=== PATIENT | male | born 1970 | race Caucasian/White ===

== ENCOUNTER → 2017-12-14 10:13 | Outpatient (CLI) | payer OTHER, SELFPAY ==
--- NOTE | 2017-12-14 10:26 | MRI_ITS ---
STUDY: MRA OF THE HEAD WITHOUT CONTRAST REASON FOR EXAM: Male, 47 years old. Family history of aneurysms. Patient has no symptoms. TECHNIQUE: 3-D rlcw-gh-titrnr (TOF) imaging was performed with MIPs. The study was performed unenhanced. COMPARISON: None. FINDINGS: Normal bilateral petrous carotid arteries. Normal right cavernous carotid artery with a normal supraclinoid bifurcation. Normal left cavernous carotid artery with a normal supraclinoid bifurcation. Normal right A1 segments of the anterior cerebral artery. Normal left A1 segments of the anterior cerebral artery. Normal intact anterior communicating artery (ACOM). Normal bilateral A2 segments of the anterior cerebral arteries. Normal right M1 and M2 segments of the middle cerebral arteries, with a normal M1 bifurcation. There is a questionable saccular aneurysm arising from the distal LEFT M1 segment near the trifurcation. Estimated size of the aneurysm is approximately 4.4 mm in size. There is non-visualization of the right posterior communicating artery (PCOM). There is non-visualization of the left posterior communicating artery (PCOM). Normal bilateral vertebral arteries. Normal basilar artery with a normal basilar bifurcation. The visualized bilateral superior cerebellar (SCA) arteries are normal. Normal bilateral P1, P2 and visualized P3 segments of the posterior cerebral arteries. There is no major vessel occlusion or hemodynamically significant stenosis. There is no demonstrated abnormality of the visualized brain. MRI/MRA Head ONLY without Contrast IMPRESSION: Apparent saccular aneurysm arising from the distal LEFT M1 segment near the trifurcation. Electronically Signed: Magalys Vazquez MD at 14:38 EST , Service support ,
== END ==
PROVIDERS: Family Provider Family Medicine; PCP Family Medicine; Visit Provider Family Medicine
DX: Z82.49 Family history of ischemic heart disease and other diseases of the circulatory system (principal)
CPT/HCPCS: 70544

== ENCOUNTER → 2018-09-13 09:20 | Outpatient (CLI) | payer OTHER, SELFPAY ==
[2018-09-13 10:41] LABS: Cholesterol 208 mg/dL (200); Glucose 87 mg/dL (74-106); High Density Lipoprotein 48 mg/dL; Triglycerides 119 mg/dL; Very Low Density Lipoprotein 24 mg/dL (5-40)
--- OUTSIDE RECORDS SUMMARY | 2018-11-08 10:15 | XMS RPT_ITS ---
:1970 Author Organization OHIP Care Team Providers Name Role Phone Diego Eaton Attending Unavailable Seven Mobley Primary Care Unavailable Diego Eaton Primary Care Unavailable Harish Carrasquillo Attending Unavailable AL-ALI, FIRAS Admitting Unavailable AL-ALI, FIRAS Attending Unavailable AL-ALI, FIRAS Admitting Unavailable AL-ALI, FIRAS Attending Unavailable PROBLEMS PROBLEMS DATE TYPE CONDITION / CODE ATTENDING STATUS SOURCE 09/27/2018 Active Cerebral AL-ALI, FIRAS Active [facility] aneurysm, Other [place] nonruptured / Repository I67.1(ICD-10) 09/27/2018 Admitting Unknown / AL-ALI, FIRAS Active [facility] diagnosis [facility](Unknown) [facility] Repository PROCEDURES PROCEDURES No Procedure Records FoundRESULTS RESULTS BRIEF OP NOT Observed: 09/27/2018 Status: COMPLETED Source: [facility] 11:22 AM CLINIC OTHER CAMPUS REPOSITORY HNO ID: [id number] Author: Mamadou Coronado Service: (none) Author Type: Physician Type: Brief Op Note Filed: 09/27/2018 11:23 AM Note Text: BRIEF OPERATIVE / PROCEDURE NOTE LOG ID: [id number] SURGERY/PROCEDURE DATE: 09/27/2018 INCISION/PROCEDURE START TIME: INCISION CLOSE/PROCEDURE END TIME: SURGEON(S)/PROCEDURALIST(S) AND FELT CARBONIZER(S): Surgeon(s) and Role: * Mamadou Marsh-Ali - Primary No Additional Staff SURGERY/PROCEDURE(S): DCA ANESTHESIA: Procedural Sedation FINDINGS: Lt MCA aneurysm ESTIMATED BLOOD LOSS: 5 mls SPECIMENS: None COMPLICATIONS: None PRE-OP/PRE-PROCEDURE DIAGNOSIS: ANEURYSM POST-OP/POST-PROCEDURE DIAGNOSIS: LT MCA ANEURYSM SIGNATURE: Mamadou Coronado MD PATIENT NAME: Corey Bermudez DATE: September 27, 2018 TIME: 11:22 AM PAGER/CONTACT #: HISTORY PHYSICAL Observed: 09/27/2018 Status: COMPLETED Source: [facility] 11:13 AM CLINIC OTHER CAMPUS REPOSITORY HNO ID: [id number] Author: Mamadou Coronado Service: (none) Author Type: Physician Type: HANDP Filed: 09/27/2018 11:17 AM Note Text: PROCEDURAL SEDATION HISTORY AND PHYSICAL EXAM SERVICE DATE: 09/27/2018 SERVICE TIME: 10:30 am Subjective HPI: This is a 48 year old male who presents with brain aneurysm PAST ANESTHESIA HISTORY: No history of adverse event PAST MEDICAL HISTORY Diagnosis Date - NONE - Thyroid nodule 07/25/2014 PAST SURGICAL HISTORY Procedure Laterality Date - NONE Prior to Admission medications as of 09/27/18 0824 Not on File ALLERGIES No Known Allergies Objective PHYSICAL EXAM: The remainder of the physical exam is noncontributory. AIRWAY: Airway Visualization of Uvula: Yes Mouth opening greater than 2 fingerbreadths: Yes Neck Full Range of Motion: Yes LUNGS: Lungs clear to auscultation, Good diaphragmatic excursion CARDIAC: Normal S1 and S2; no rubs, murmurs, or gallops Assessment/Plan ASA Class: ASA Class:: Normal healthy patient emergency procedure Active Problems: * No active hospital problems. * Resolved Problems: * No resolved hospital problems. * Provisional Diagnosis/Treatment Plan: DCA SEDATION GOAL: Moderate SIGNATURE: Mamadou Coronado MD PATIENT NAME: Corey Bermudez DATE: September 27, 2018 TIME: 11:14 AM PAGER: [phone] HEMOGRAM Collected: 09/27/2018 Status: F Source: [facility] 8:54 AM HEALTH SYSTEM REPOSITORY TYPE CODE TESTS RESULT OUT OF REFERENCE UNITS RANGE LAB WBC(LOINC) 4.23-9.07 thou/cmm WBC 7.08 LAB RBC(LOINC) 4.63-6.08 mil/cmm RBC 5.41 LAB HGB(LOINC) 13.7-17.5 g/dL Hgb 16.2 LAB HCT(LOINC) 40.1-51.0 % Hct 46.8 LAB MCV(LOINC) 83.2-95.6 fl MCV 86.5 LAB MCH(LOINC) 25.7-32.2 pg MCH 29.9 LAB MCHC(LOINC) 32.3-36.5 % MCHC 34.6 LAB RDW(LOINC) 11.6-14.4 % RDW 12.4 LAB RDWSD(LOINC 36.1-45.8 fl ) RDW SD 38.9 LAB PLT(LOINC) 141-365 thou/cmm Platelet 238 LAB MPV(LOINC) 8.7-12.0 fl MPV 10.0 Performed By: #### CBC1 #### [facility] [address] [address] BASIC PANEL Collected: 09/27/2018 Status: F Source: [facility] 8:54 AM HEALTH SYSTEM REPOSITORY TYPE CODE TESTS RESULT OUT OF REFERENCE UNITS RANGE LAB NA(LOINC) 136-145 mEq/L Sodium Blood 138 LAB K(LOINC) 3.5-5.1 mEq/L Potassium Blood 3.8 LAB CL(LOINC) 98-107 mEq/L Chloride Blood 105 LAB CO2(LOINC) 21-32 mEq/L CO2 Blood 28 LAB GLU(LOINC) 70-99 mg/dL Glucose Blood 88 LAB BUN(LOINC) 7-18 mg/dL BUN High Blood 21 LAB CREA(LOINC 0.67-1.17 mg/dL ) Creatinine Blood 0.77 LAB CA(LOINC) 8.5-10.1 mg/dL Calcium Blood 8.6 LAB ANGAP(LOIN 8-16 C) Anion Gap 9 Performed By: #### P8 #### [facility] [address] [address] MDRD GFR Collected: 09/27/2018 Status: F Source: [facility] 8:54 AM HEALTH SYSTEM REPOSITORY TYPE CODE TESTS RESULT OUT OF RANGE REFERENCE UNITS LAB GFRFN(LOINC >60mL/min/1.73m ) 2 eGFR >60 Result Comment: If the patient is , multiply the result by 1.210. Performed By: #### GFR #### [facility] [address], [place] [address] PROTIME Collected: 09/27/2018 Status: F Source: [facility] 8:54 AM HEALTH SYSTEM REPOSITORY TYPE CODE TESTS RESULT OUT OF REFERENCE UNITS RANGE LAB PTI(LOINC) 9.7-13.0 sec Prothrombin Time 10.9 LAB INR(LOINC) 0.90-1.30 INR 1.05 Result Comment: Note: Reference Range Change Vitamin K Antagonist (VKA) Therapeutic Range: INR 2 to 3 (Target INR of 2.5) Note: For patients treated with VKA drugs, such as warfarin, the [place] [employer] 2012 Guideline recommends a therapeutic INR range of 2 to 3 (target INR of 2.5). This recommendation includes high-risk patients with antiphospholipid syndrome with previous arterial or venous thromboembolism, current-generation mechanical or bioprosthetic aortic heart valve replacement. VKA Therapeutic Range for some Mechanical Valve Replacement: INR 2.5 to 3.5 (Target INR of 3) Note: Patients with mechanical aortic valve replacement and additional risk factors for thromboembolic events (atrial fibrillation, previous thromboembolism, LV dysfunction, hypercoagulable conditions) or an older generation mechanical AVR (i.e., ball in-Cage) or any mechanical MVR should have a INR therapeutic range of 2.5 to 3.5 target INR of 3). Kath GH, et al. Chest 2012; 141:7S-47S Gavin RA et al. JAC 2017; 70: 252-289 Performed By: #### PT #### [facility] [address], [place] [address] LIPID PROFILE Collected: 09/13/2018 Status: F Source: [place] 9:22 AM [facility] REPOSITORY TYPE CODE TESTS RESULT OUT OF RANGE REFERENCE UNITS LAB L501.4900 200 mg/dL High CHOL 208 Result Comment: <200 mg/dL Desirable 200-240 mg/dL Borderline >240 mg/dL High Risk LAB L501.5000 mg/dL Normal TRIG 119 Result Comment: The drugs N-Acetylcysteine and Metamizole may falsely depress this assay. Serum Triglycerides Reference Interval Normal <150 mg/dL Borderline high 150 - 199 mg/dL High 200 - 499 mg/dL Very High > or = 500 mg/dL LAB L501.6400 mg/dL Normal HDL 48 Result Comment: The drugs N-Acetylcysteine and Metamizole may falsely depress this assay. Reference Range HDL <40 mg/dL Low HDL Cholesterol HDL >or= 60 mg/dL High HDL Cholesterol LAB L501.6500 0-130 mg/dL High LDL 136 LAB L501.6600 5-40 mg/dL Normal VLDL 24 Performed By: #### L500.4100, L501.0100 #### [facility] [address] [place], [address] GLUCOSE Collected: 09/13/2018 Status: F Source: [place] 9:22 AM [facility] REPOSITORY TYPE CODE TESTS RESULT OUT OF RANGE REFERENCE UNITS LAB L501.0100 74-106 mg/dL Normal GLU 87 Result Comment: Please note revised GLUCOSE reference range effective 2017. Performed By: #### L500.4100, L501.0100 #### [facility] [address] [place], [address] HOSP Observed: 08/27/2018 Status: COMPLETED Source: [facility] 12:00 AM CLINIC OTHER CAMPUS REPOSITORY Patient:Corey Bermudez MRN: <[id number]> Height:6' 1(1.854 m) Weight:No patient weight recorded within the last 30 days. Outpatient Medications as of 09/27/18: Patient has no current outpatient medications. Admission/Clinic Administered Medications as of 09/27/18: NaCl 0.9% iv infusion Problem List: Allergies: No Known Allergies Date Verified:09/27/18 Lab Values Lab Value Units Date High Low POTA* 3.8 mEq/L 09/27/2018 5.1 3.5 MAGALI* 46.8 % 09/27/2018 51.0 40.1 No progress notes entered within the past 30 days MRA HEAD ONLY WITHOUT Observed: 12/14/2017 Status: F Source: [place] CONTRAST 10:27 AM [facility] REPOSITORY [facility] Services [address] [place] [address] MRA Head ONLY without Contrast MR#: [id number] Acct: [id number] Name: COREY BERMUDEZ Rep #: [id number] : 1970 M 47 From: Magalys Vazquez MD PCP: Seven Mobley MD Status: REG CLI Study: MRA Head ONLY without Contrast Date of Exam: 12/14/17 Exam# [id number] Ordering Dr: Diego Eaton MD STUDY: MRA OF THE HEAD WITHOUT CONTRAST REASON FOR EXAM: Male, 47 years old. Family history of aneurysms. Patient has no symptoms. TECHNIQUE: 3-D jqrs-cw-zxcbrg (TOF) imaging was performed with MIPs. The study was performed unenhanced. COMPARISON: None. FINDINGS: Normal bilateral petrous carotid arteries. Normal right cavernous carotid artery with a normal supraclinoid bifurcation. Normal left cavernous carotid artery with a normal supraclinoid bifurcation. Normal right A1 segments of the anterior cerebral artery. Normal left A1 segments of the anterior cerebral artery. Normal intact anterior communicating artery (ACOM). Normal bilateral A2 segments of the anterior cerebral arteries. Normal right M1 and M2 segments of the middle cerebral arteries, with a normal M1 bifurcation. There is a questionable saccular aneurysm arising from the distal LEFT M1 segment near the trifurcation. Estimated size of the aneurysm is approximately 4.4 mm in size. There is non-visualization of the right posterior communicating artery (PCOM). There is non-visualization of the left posterior communicating artery (PCOM). Normal bilateral vertebral arteries. Normal basilar artery with a normal basilar bifurcation. The visualized bilateral superior cerebellar (SCA) arteries are normal. Normal bilateral P1, P2 and visualized P3 segments of the posterior cerebral arteries. There is no major vessel occlusion or hemodynamically significant stenosis. There is no demonstrated abnormality of the visualized brain. MRI/MRA Head ONLY without Contrast IMPRESSION: Apparent saccular aneurysm arising from the distal LEFT M1 segment near the trifurcation. Electronically Signed: Magalys Vazquez MD at 14:38 EST , Service support , CC: Seven Mobley MD; Diego Eaton MD [place] Measurer: Signed ALLERGIES ALLERGIES DATE TYPE / CODE NAME / CODE REACTION SEVERITY SOURCE Drug NO KNOWN [facility] Class/49177 ALLERGIES Other [place] 1003(SNOMED Repository CT) [id number] NO KNOWN [facility] 6([facility]) Repository ENCOUNTERS ENCOUNTERS ADMIT/DISCHARGE ACCOUNT NUMBER ADMITTING ENCOUNTER LOCATION SOURCE CLASS 09/27/2018/09/27/20 [id number] AL-ALI, FIRAS [facility] Other [place] Repository 09/27/2018/09/27/20 [id number] AL-ALI, FIRPATY Inpatient [place] [facility] 18 Encounter GENERAL [facility] [place] [facility] MEDICAL Repository CENTERBuildi ng:NEILRoom: POOLBed: 09/13/2018 [id number] [facility] ding:MFPLAB Repository 12/14/2017 [id number] [facility] ding:MRI Repository PAYERS PAYERS ENCOUNTER GUARANTOR PAYER SUBSCRIBER SOURCE 09/27/2018 COREY Fox Santiago COREY Fox [facility] KLINGMANDOB: Insurance:[facility]: [facility] [id number] [facility] Number: [place] [id number]: [phone]) Date: [phone] (HP) 09/13/2018 Corey Brary [id number] Insurance:CORESOURCEP [facility]: [facility] Number: [id number] [id number] Repository [address]Gfj: [phone]) Date:[phone] (HP) [address] [place], [place] [address]FM: 09/13/2018 Secondary NOT GIVENUNK [place] Insurance:SELF PAY [facility] Number: Effective Repository Date:2018-09-13 12/14/2017 Corey Barry [id number] [facility] Number: [id number], [place] [id number] Repository [address]Qgu: [phone]) Date:5775-54-47[phone] (HP) [address] [place] [address]ND: 12/14/2017 Secondary NOT GIVENUNK [place] Insurance:SELF PAY [facility]: Effective Repository Date:2017-12-07
== END ==
PROVIDERS: Family Provider Family Medicine; PCP Family Medicine; Visit Provider Nurse Practitioner Family
DX: Z00.00 Encounter for general adult medical examination without abnormal findings (principal)
CPT/HCPCS: 36415; 80061; 82947

== ENCOUNTER 2018-12-22 16:35 | Inpatient (IN) | payer OTHER, SELFPAY ==
[2018-12-22 16:56] VITALS: BP 121/80; PULSE 64; RESP 16; TEMP 36.7; O2SAT 98; BMI 26.3
[2018-12-22 17:00] VITALS: O2SAT 97
--- NOTE | 2018-12-22 19:44 | PN_ITS ---
Subjective: Follow-up stroke Is a 48-year-old white male who underwent a left MCA coiling for a aneurysm on December 17. Patient underwent imaging due to a family history of cerebral aneurysms and so eventually went and had the coiling. The quality is comp gated by a superotemporal occlusion. Patient did receive ReoPro. Afterwards, patient did have some right-sided weakness, expressive a aphasia. Symptoms, however have been improving according to his . Vitals/I&O's: Vital Signs Temp Pulse Resp BP Pulse Ox 36.7 C 64 16 121/80 H 98 12/22/18 16:56 12/22/18 16:56 12/22/18 16:56 12/22/18 16:56 12/22/18 16:56 Oxygen Delivery Method Room Air Weight: 92.986 kg Body Mass Index (BMI) 26.3 General: Alert, Cooperative, No apparent distress, - - Expressive aphasia. Follows commands appropriately. HEENT: Atraumatic, PERRLA, EOMI, Normocephalic Oral: Moist Mucosa, No Gingival or Mucosal Lesions/ Ulcerations Neck: No Nodes, Thyroid Normal Size and Texture Lungs: Clear to auscultation, Normal air movement, No rhonchi, No wheeze Cardiovascular: Regular rate, Regular Rhythm, Normal S1, Normal S2, No murmurs Abdomen: Bowel Sounds Present, Soft, Non Tender, Non-Distended, No Hepato- splenomegaly Extremities: No edema, No Calf Tenderness Skin: No rashes, No breakdown Musculoskeletal: No Tenderness to Palpation of Joints or Extremities, No Muscle Wasting Neurological: Cranial nerves II-XII grossly intact, Motor Exam 5/5 strength throughout - Though there was very slight drift with the right lower extremity. Psych/Mental Status: Normal Affect, Appropriate Current Medications Acetaminophen (Tylenol) 650 mg PO Q8H PRN PRN PRN Reason: Mild Pain (0-3/10)/Headache Aspirin (Aspirin, Baby) 81 mg PO DAILYCM GISSELLE Atorvastatin Calcium (Lipitor) 40 mg PO QHS GISSELLE Bisacodyl (Dulcolax) 10 mg RECTAL .PRN X 1 PRN PRN Reason: Constipation Clopidogrel Bisulfate (Plavix) 75 mg PO DAILY GISSEL[place] Enoxaparin Sodium (Lovenox) 30 mg SC DAILY@0600 GIS[place] Magnesium Hydroxide (Milk Of Magnesia) 30 ml PO .PRN X 1 PRN PRN Reason: Constipation Senna/Docusate Sodium (Senokot-S, Susu-Colace) 2 tablet PO BID GISSELLE Medical Necessity - Tobacco Use Smoking Status: Never smoker Assessment/Plan 1. She stroke: Status post MCA coiling. Patient did receive ReoPro. Patient still does have some right-sided weakness and expressive a aphasia but have been slightly improving. Patient on Plavix, aspirin and atorvastatin 40. Patient to follow-up with neurology as outpatient. Physical, occupational and speech therapy. 2. Left MCA aneurysm: Status post coiling. Follow-up with Dr. Coronado as outpatient. 3. DVT prophylaxis with Lovenox. Case discussed with the patient's at bedside. Code Visit Inpatient E&M: 59232 Subs Hosp L2
[2018-12-22 19:51] VITALS: BP 124/75; PULSE 60; RESP 16; TEMP 36.6; O2SAT 97
[2018-12-22] MEDS: Senna/Docusate Sodium 1 Tablet 2 TABLET PO (20:41)
[2018-12-22] MEDS: Atorvastatin Calcium 40 MG Tablet PO (20:42)
[2018-12-23 05:00] VITALS: BMI 26.3
[2018-12-23 07:03] VITALS: BP 119/76; PULSE 60; RESP 16; TEMP 36.9; O2SAT 94
[2018-12-23 07:28] LABS: Absolute Lymphocyte Count 2.33 X10^3/ul (0.83-4.51); Basophil# 0.02 X10^3/uL; Basophil% 0.3 % (0-1); Eosinophil# 0.16 X10^3/uL; Eosinophils% 2.2 % (0-5); Hematocrit 42.2 % (40-54); Hemoglobin 13.7 g/dl (13.0-16.5); Lymphocyte # 2.33 X10^3/ul (4.0); Mean Corp Hgb Conc 32.5 g/gl (32-36); Mean Corpuscular Hgb 28.9 pg (27.0-32.0); Mean Platelet Vol. 10.1 fl (6.2-12.0); Monocyte# 0.75 X10^3/uL; Monocyte% 10.3 % (0-10); Neutrophil # 4.02 X10^3/uL (2.7-7.7); Neutrophil % 55.1 % (47-70); Platelet Count 218 K/mm3 (150-450); RBC Distribution Width CV 12.6 % (11.6-14.6); RBC Distribution Width SD 40.4 fl (35.1-43.9); Red Blood Count 4.74 M/mm3 (4.6-6.2); White Blood Count 7.3 K/mm3 (4.4-11.0)
[2018-12-23 07:36] LABS: POSITIVE COUNT NO; POSITIVE DIFFERENTIAL NO; POSITIVE MORPHOLOGY NO
[2018-12-23 07:46] LABS: ALB/GLOB Ratio 0.9 RATIO (0.9-2.4); AST(SGOT) 34 U/L (15-37); Alanine Aminotransfer ALT/SGPT 62 U/L (16-61); Albumin, Serum 3.3 g/dL (3.2-5.0); Alkaline Phosphatase 74 U/L (45-117); Anion Gap 6 (5-15); BUN 23 mg/dL (7-18); Calcium,Total 8.7 mg/dL (8.5-10.1); Chloride 107 mmol/L (98-107); EST Glomerular Filtration Rate 84 mL/min (>60); Est Glom Filt Rate - Afr Amer 102 mL/min (>60); Estimated Creatinine Clearance 103.89 ml/min; Globulin 3.6 g/dL (2.2-4.2); Glucose 101 mg/dL (74-106); Potassium 4.4 mmol/L (3.5-5.1); Protein, Total 6.9 g/dL (6.4-8.2); Sodium Level 143 mmol/L (136-145)
[2018-12-23] MEDS: Aspirin 81 MG TAB.CHEW PO (07:47)
[2018-12-23] MEDS: Senna/Docusate Sodium 1 Tablet 2 TABLET PO (07:47)
[2018-12-23] MEDS: Clopidogrel Bisulfate 75 MG Tablet PO (07:47)
[2018-12-23] MEDS: Enoxaparin 30 MG/0.3 ML Syringe SC (08:17)
--- NOTE | 2018-12-23 10:48 | HP.PCM_ITS ---
Problem List (1) Debility Status: Acute (2) Aphasia Status: Acute (3) Left acute arterial ischemic stroke, MCA (middle cerebral artery) Status: Acute (4) Aneurysm Status: Resolved History of Present Illness Date of Admission: 12/22/18 Chief Complaint: Debility post stroke The patient is a 48 year old M with PMH Left MCA aneurysm s/p coiling 12/18/[address] Dahl at [facility] complicated by aphasia, found to have left MCA stroke with left superior temporal occlusion in follow up catheter angiogram per documentation, admitted to [facility] on 12/22/18 with debility s/p acute Left MCA stroke, for > 3 hrs therapy daily with a goal of returning home at or near his prior level of functional independence. Per [facility] note documentation patient had NIHSS of 5 on 12/18/2018, MRA angiogram done on 12/14/2018 reported to show distal Left MCA aneurysm fo which he underwent coiling at [facility]. At present patient continues to have expressive aphasia, denies any weakness, headache, dizziness, focal motor weakness or sensory loss. He lives with his , in a 2 jae house and has 4 steps to get into the house, denies any falls, does not use cane or walker to ambulate and does drive. Per patient he did not need any assistance for his ADLs prior to the event. He has been started on ASA/Plavix and Lipitor post stroke. ] Past Medical History Allergies No Known Allergies Allergy (Verified 12/22/18 18:38) Home Medications: Ambulatory Orders Medication Instructions Recorded Aspirin 81 mg PO DAILY 12/22/18 Clopidogrel Bisulfate [Plavix] 75 mg PO DAILY 12/22/18 Enoxaparin Sodium [Lovenox] 30 mg SQ DAILY 12/22/18 Lipitor 40 mg PO DAILY 12/22/18 Lives: Spouse/ Significant Other Smoking Status: Never smoker Alcohol: None Drugs: None Review of Systems Constitutional: Reports: - - complete ROS negative except as documented in HPI VTE Information - Inpt Only VTE Present on Admission: No VTE Mechan Device Prophylaxis: SCD's, Knee High DONNA Hose VTE Pharm Prophylaxis ordered?: Yes Patient Problems: Active and Suspected Problems Debility (Acute) Aphasia (Acute) Left acute arterial ischemic stroke, MCA (middle cerebral artery) (Acute) - Physical Exam General: Alert HEENT: Normocephalic Neck: Supple Lungs: Normal air movement Cardiovascular: Normal S1, Normal S2 Abdomen: Bowel Sounds Present Extremities: No cyanosis Neurological: - - consious, alert, AoAx3, CN 2-12 grossly intact, has mild to moderate expressive aphasia, with some receptive deficits, power 5/5 both UE/LE, no sensory loss, no cerebellar signs, Reflexes + B/L B/S/T/K/A, gait normal. NIHSS 3 at present, mRS 0 at baseline. Psych/Mental Status: Normal Affect Vital Signs Temp Pulse Resp BP Pulse Ox 98.4 F 60 16 119/76 94 12/23/18 07:03 12/23/18 07:03 12/23/18 07:03 12/23/18 07:03 12/23/18 07:03 Oxygen Delivery Method Room Air Weight: 92.986 kg Body Mass Index (BMI) 26.3 Intake and Output for Last 24 Hours 12/21/18 12/22/18 12/24/18 23:59 23:59 00:59 Intake Total 240 / 240 Output Total 200 / 200 250 / 250 Balance -200 / -200 -10 / -10 Laboratory Tests Past 24 Hrs 12/23/18 12/23/18 07:15 07:15 WBC 7.3 RBC 4.74 Hgb 13.7 Hct 42.2 MCV 89.0 MCH 28.9 MCHC 32.5 RDW 12.6 RDW Differential 40.4 Plt Count 218 MPV 10.1 Immature Gran % (Auto) 0.100 Neut % (Auto) 55.1 Lymph % (Auto) 32.0 Fergus % (Auto) 10.3 H Eos % (Auto) 2.2 Baso % (Auto) 0.3 Absolute Neuts (auto) 4.0 Absolute Lymphs (auto) 2.33 Total Counted Not Reportable Sodium 143 Potassium 4.4 Chloride 107 Carbon Dioxide 30.0 Anion Gap 6 BUN 23 H Creatinine 1.00 Estim Creat Clear Calc 103.89 Est GFR (MDRD) Af Amer 102 Est GFR (MDRD) Non-Af 84 BUN/Creatinine Ratio 23.0 H Glucose 101 Calcium 8.7 Total Bilirubin 0.70 AST 34 ALT 62 H Alkaline Phosphatase 74 Total Protein 6.9 Albumin 3.3 Globulin 3.6 Albumin/Globulin Ratio 0.9 Assessment/Plan All Active Problems Debility (Acute) Aphasia (Acute) Left acute arterial ischemic stroke, MCA (middle cerebral artery) (Acute) Aneurysm (Resolved) The patient is a 48 year old M with PMH Left MCA aneurysm s/p coiling 12/18/[address] Dahl at [facility] complicated by aphasia, found to have left MCA stroke with left superior temporal occlusion in follow up catheter angiogram per documentation, admitted to [facility] on 12/22/18 with debility s/p acute Left MCA stroke, for > 3 hrs therapy daily with a goal of returning home at or near his prior level of functional independence. Per [facility] note documentation patient had NIHSS of 5 on 12/18/2018, MRA angiogram done on 12/14/2018 reported to show distal Left MCA aneurysm fo which he underwent coiling at [facility]. At present patient continues to have expressive aphasia, denies any weakness, headache, dizziness, focal motor weakness or sensory loss. He lives with his , in a 2 jae house and has 4 steps to get into the house, denies any falls, does not use cane or walker to ambulate and does drive. Per patient he did not need any assistance for his ADLs prior to the event. He has been started on ASA/Plavix and Lipitor post stroke. Plan -PT for gait stability -OT for ADLs -ST -Bowel protocol -Analgesics as needed -Labs reviewed-ALT elevated slightly, will recheck. -Acute left MCA stroke- on ASA/Plavix and Lipitor -Left MCA aneurysm- s/p coiling by Dr. Dahl at [facility] 12/18/2018 -Goal BP < 130/80 mmHg -GI/DVT prophylaxis- Famotidine/Lovenox -Fall precautions -Further medical management per hospitalist recommendation -Follow up with Neurology, PCP and Dr. Dahl after discharge Code Visit Inpatient E&M: 67081 Init Hosp L3
--- NOTE | 2018-12-23 10:48 | REHABEVAL_ITS ---
Admission Information Status Changes from Prescreening?: No changes Identified Actual Problem List:: Mobility Impaired, Self Care Deficit Potential Problem List:: DVT, Bleeding, Infection, UTI, Aspiration, Falls, Skin Integrity, Depression Risk of Complications DVT: LMWH, DONNA Hose, Sequential Compression Device Bleeding: Monitor Lab Values, Nursing to Teach Precautions for anti-coagulation therapy., Wound, if applicable, to be assessed every shift., Stroke patients assessed for lethargy or change in status. Infection: Clinical Staff to Monitor for S/S of infection:, S/S of infection include fever, redness, warmth, etc. Urinary Tract Infection: Monitor for frequency, burning, discomfort, or incontinence., Nursing will obtain urine sample for urinalysis and C&S when ordered. Aspiration: Clinical staff will monitor for coughing, drooling, congestion., Speech will evaluate swallowing and dsyphasia., Nursing will monitor patient swallowing during meals. Falls: Patient will be evaluated for Fall Precautions, Patient will be placed on Fall Precautions as indicated per protocol. Skin Breakdown: Nursing will assess skin daily using assessment tool., Nursing will place on Skin Breakdown Precautions as indicated. Pain: Clinical staff will assess patient's pain level per protocol., Medications will be given, if needed, and the pain level reassessed., Other methods: Massage, distraction, decrease stimulus, etc. used PRN. Plan of Care Patient requires physician specializing in physical medicine and rehab oversight to provide close medical supervision of rehab issues including: Pain Management, Sleep Problems, Bowel and Bladder, Medical and co-morbidity Management, DVT prophylaxis, Rehabilitation Leadership, Coordination of treatment team Patient needs Physical Therapy: For a minimum of 1 hour, At least 5 out of 7 days Patient needs Physical Therapy to improve:: Mobility, Mobility, Mobility, Strengthening, Transfers, Stretching, ROM, Endurance, Stairs, Gait, Balance Patient needs Occupational Therapy: For a minimum of 1 hour, At least 5 out of 7 days Patient needs Occupational Therapy to improve ADL's incl.: Eating, Grooming, Bathing, Dressing, Toileting, Toilet transfers, Community Reintegration, Higher functioning activities, Household tasks, Adaptive Equipment, Splinting, Other activities as determined Patient requires speech therapy: For a minimum of 1 hour, At least 5 out of 7 days Patient requires speech therapy for: Swallowing, Cognition, Language Skills, Compensatory Strategies Patient requires 24/ Rehabilitation Nursing for: Pain Issues, Identifying and preventing risk factors, Monitoring and reporting current medical conditions, Assisting with ambulation, transfer, and all ADL's, Teaching patients about disease process and medications, Family teaching, Providing safe environment, Bowel and Bladder Issues, Skin integrity, Medication Management Patient needs Life Enrichment Manager/ Case Management for: Discharge Planning, Arranging Home Equipment or Services, Family Interventions Patient needs Dietary and Nutrition Services for: Adequate Nutrition, Nutritional Supplements, Nutritional Education Goals Patient will remain: free from falls, or injury at time of discharge. Patient will perform bed mobility at: MOD I level of assist. Patient will complete transfers from bed to chair at: MOD I level of assist. Patient will ambulate: 100 feet, with MOD I assist, with LRD Patient will complete upper body dressing at: MOD I level of assist. Patient will complete lower body dressing at: MOD I level of assist. Patient will complete toileting at: MOD I level of assist. Patient will perform bathing at: MOD I level of assist. Patient will complete grooming at: MOD I level of assist. Patient will complete home management skills at: MOD I level of assist. Patient will achieve: 12 stairs, at MOD I assist Patient will have pain level of: of 3 or less Patient's skin will: remain intact, free from infection. Patient will receive: adequate nutrition. Discharge Planning Pt Prognosis for Sig. Practical Improv. w/in Reasonable Time: Good Estimated Length of stay (days): 16 Anticipated D/C Destination: Home Was Preadmission Assessment Accurate?: Yes
[2018-12-23 11:30] VITALS: O2SAT 97
[2018-12-23 12:18] VITALS: BMI 26.3
--- NOTE | 2018-12-23 13:37 | NURSING ---
patient ambulated multiple times this shift x min assist >150 ft in hallway
[2018-12-23 19:13] VITALS: BP 146/87; PULSE 69; RESP 16; TEMP 36.9; O2SAT 98
[2018-12-23] MEDS: Atorvastatin Calcium 40 MG Tablet PO (21:47)
[2018-12-24 05:00] VITALS: BMI 26.3
[2018-12-24] MEDS: Enoxaparin 30 MG/0.3 ML Syringe SC (05:29)
[2018-12-24 07:55] VITALS: BP 161/84; PULSE 57; RESP 16; TEMP 36.5; O2SAT 98
[2018-12-24] MEDS: Clopidogrel Bisulfate 75 MG Tablet PO (08:30)
[2018-12-24] MEDS: Aspirin 81 MG TAB.CHEW PO (08:30)
[2018-12-24 11:55] VITALS: BMI 26.3
[2018-12-24 11:56] VITALS: O2SAT 98
[2018-12-24 13:44] LABS: Alanine Aminotransfer ALT/SGPT 58 U/L (16-61)
--- NOTE | 2018-12-24 15:27 | PN_ITS ---
Patient Problems: Active and Suspected Problems Debility (Acute) Aphasia (Acute) Left acute arterial ischemic stroke, MCA (middle cerebral artery) (Acute) Subjective: Patient seen and examined. He has no complaints. Review of systems is otherwise negative. He has been tolerating therapy very well. REview of systems is otherwise negative. Vitals/I&O's: Vital Signs Temp Pulse Resp BP Pulse Ox 97.7 F L 57 L 16 161/84 H 98 12/24/18 07:55 12/24/18 07:55 12/24/18 07:55 12/24/18 07:55 12/24/18 11:56 Oxygen Delivery Method Room Air Weight: 204 lb 12.951 oz Body Mass Index (BMI) 26.3 Intake and Output for Last 24 Hours 12/22/18 12/23/18 12/24/18 22:59 23:59 23:59 Intake Total Output Total Balance General: Alert, Oriented x3, Cooperative, No apparent distress HEENT: Atraumatic, PERRLA, EOMI, Normocephalic Oral: Moist Mucosa Neck: Supple, No JVD, Negative Carotid Bruits Lungs: Clear to auscultation, Normal air movement, No rhonchi, No wheeze, No ral es Cardiovascular: Regular rate, Regular Rhythm, Normal S1, Normal S2, No murmurs Abdomen: Bowel Sounds Present, Soft, Non Tender, Non-Distended, No Hepato- splenomegaly Extremities: No clubbing, No cyanosis, No edema, Capillary Refill Less than 3 Seconds Skin: No rashes, No breakdown Musculoskeletal: No Tenderness to Palpation of Joints or Extremities Lymphatic: No Cervical, Supraclavicular, or Inguinal Adenopathy Neurological: Cranial nerves II-XII grossly intact, - - mild expressive aphasia Psych/Mental Status: Normal Affect, Appropriate, Alert and oriented to time, place, person, mood and affect Laboratory Results 12/24/18 12:50: ALT 58 Current Medications Acetaminophen (Tylenol) 650 mg PO Q8H PRN PRN PRN Reason: Mild Pain (0-3/10)/Headache [facility] Admin: 12/24/18 08:30 Dose: 81 mg Atorvastatin Calcium (Lipitor) 40 mg PO QHS [facility] Last Admin: 12/23/18 21:47 Dose: 40 mg Bisacodyl (Dulcolax) 10 mg RECTAL .PRN X 1 PRN PRN Reason: Constipation Clopidogrel Bisulfate (Plavix) 75 mg PO DAILY [facility] Last Admin: 12/24/18 08:30 Dose: 75 mg Enoxaparin Sodium (Lovenox) 30 mg SC DAILY@0600 [facility] Last Admin: 12/24/18 05:29 Dose: 30 mg Famotidine (Pepcid) 20 mg PO BID [facility] Magnesium Hydroxide (Milk Of Magnesia) 30 ml PO .PRN X 1 PRN PRN Reason: Constipation Senna/Docusate Sodium (Senokot-S, Susu-Colace) 2 tablet PO BID PRN PRN Reason: Constipation Medical Necessity - Tobacco Use Smoking Status: Never smoker Assessment/Plan All Active Problems Debility (Acute) Aphasia (Acute) Left acute arterial ischemic stroke, MCA (middle cerebral artery) (Acute) Aneurysm (Resolved) 1. CVA s/p MCA coiling. * developed a stroke after he had MCA aneurysm coiling. * Patient has improved and he does mild right-sided weakness. On aspirin and Plavix as well as * Intensity atorvastatin. PT OT on board. Speech therapy also on board. * Neurology on board. * 2. Left MCA aneurysm: s/p coiling. TO follow up with neurosurgery on outpatient basis DVT prophylaxis: lovenox Code Visit Inpatient E&M: 35260 Subs Hosp L2
[2018-12-24 19:32] VITALS: BP 130/76; PULSE 71; RESP 16; TEMP 36.7; O2SAT 95
[2018-12-24] MEDS: Atorvastatin Calcium 40 MG Tablet PO (19:59)
[2018-12-24] MEDS: Famotidine 20 MG Tablet PO (19:59)
[2018-12-24 21:31] VITALS: BMI 26.3
[2018-12-25] MEDS: Enoxaparin 30 MG/0.3 ML Syringe SC (07:08)
[2018-12-25 07:35] VITALS: BP 125/76; PULSE 62; RESP 16; TEMP 36.9; O2SAT 96
[2018-12-25] MEDS: Aspirin 81 MG TAB.CHEW PO (08:02)
[2018-12-25] MEDS: Famotidine 20 MG Tablet PO ×2 (08:02→21:57)
[2018-12-25] MEDS: Clopidogrel Bisulfate 75 MG Tablet PO (08:02)
--- NOTE | 2018-12-25 15:13 | PN.NEURO_ITS ---
Patient Problems: Active and Suspected Problems Debility (Acute) Aphasia (Acute) Left acute arterial ischemic stroke, MCA (middle cerebral artery) (Acute) Subjective: No issues overnight. Care discussed with nursing staff. - Physical Exam General: Alert HEENT: Normocephalic Neck: Supple Lungs: Normal air movement Cardiovascular: Normal S1, Normal S2 Abdomen: Bowel Sounds Present Extremities: No cyanosis Neurological: - - consious, alert, AoAx3, CN 2-12 grossly intact, has mild to moderate expressive aphasia, with some receptive deficits, power 5/5 both UE/LE, no sensory loss, no cerebellar signs, Reflexes + B/L B/S/T/K/A, gait normal. NIHSS 2 at present, mRS 0 at baseline. Psych/Mental Status: Normal Affect Vital Signs Temp Pulse Resp BP Pulse Ox 98.5 F 62 16 125/76 H 96 12/25/18 07:35 12/25/18 07:35 12/25/18 07:35 12/25/18 07:35 12/25/18 07:35 Oxygen Delivery Method Room Air Weight: 92.9 kg Body Mass Index (BMI) 26.3 Intake and Output for Last 24 Hours 12/23/18 12/24/18 12/25/18 23:59 23:59 23:59 Intake Total 680 / 680 Output Total Balance 680 / 680 Medical Necessity - Tobacco Use Smoking Status: Never smoker Assessment/Plan All Active Problems Debility (Acute) Aphasia (Acute) Left acute arterial ischemic stroke, MCA (middle cerebral artery) (Acute) Aneurysm (Resolved) The patient is a 48 year old M with [facility] Left MCA aneurysm s/p coiling 12/18/[address] Dahl at [facility] complicated by aphasia, found to have left MCA stroke with left superior temporal occlusion in follow up catheter angiogram per documentation, admitted to [facility] on 12/22/18 with debility s/p acute Left MCA stroke, for > 3 hrs therapy daily with a goal of returning home at or near his prior level of functional independence. Per [facility] note documentation patient had NIHSS of 5 on 12/18/2018, MRA angiogram done on 12/14/2018 reported to show distal Left MCA aneurysm fo which he underwent coiling at [facility]. At present patient continues to have expressive aphasia, denies any weakness, headache, dizziness, focal motor weakness or sensory loss. He lives with his , in a 2 jae house and has 4 steps to get into the house, denies any falls, does not use cane or walker to ambulate and does drive. Per patient he did not need any assistance for his ADLs prior to the event. He has been started on ASA/Plavix and Lipitor post stroke. Plan -PT for gait stability -OT for ADLs -ST -Bowel protocol -Analgesics as needed -Labs reviewed-Repeat ALT normalized. -Acute left MCA stroke- on ASA/Plavix and Lipitor -Left MCA aneurysm- s/p coiling by Dr. Dahl at [facility] 12/18/2018 -Goal BP < 130/80 mmHg -GI/DVT prophylaxis- Famotidine/Lovenox -Fall precautions -Further medical management per hospitalist recommendation -Follow up with Neurology, PCP and Dr. Dahl after discharge
[2018-12-25 17:00] VITALS: BMI 26.3
[2018-12-25 19:22] VITALS: BP 123/75; PULSE 66; RESP 16; TEMP 36.9; O2SAT 96
[2018-12-25] MEDS: Atorvastatin Calcium 40 MG Tablet PO (21:57)
[2018-12-25 22:00] VITALS: PULSE 66; RESP 16; O2SAT 96; BMI 26.3
[2018-12-26] MEDS: Enoxaparin 30 MG/0.3 ML Syringe SC (05:37)
[2018-12-26 07:11] VITALS: BP 110/71; PULSE 57; RESP 16; TEMP 36.9; O2SAT 100
[2018-12-26] MEDS: Aspirin 81 MG TAB.CHEW PO (07:57)
[2018-12-26] MEDS: Clopidogrel Bisulfate 75 MG Tablet PO (07:57)
[2018-12-26] MEDS: Famotidine 20 MG Tablet PO ×2 (07:57→20:15)
[2018-12-26 10:58] VITALS: BMI 26.3
--- NOTE | 2018-12-26 17:45 | PN_ITS ---
Patient Problems: Active and Suspected Problems Debility (Acute) Aphasia (Acute) Left acute arterial ischemic stroke, MCA (middle cerebral artery) (Acute) Subjective: Patient seen and examined. He had no complaints. Review of systems otherwise negative. Family was visiting by his bedside. Speech had improved significantly. Vitals/I&O's: Vital Signs Temp Pulse Resp BP Pulse Ox 98.4 F 57 L 16 110/71 100 12/26/18 07:11 12/26/18 07:11 12/26/18 07:11 12/26/18 07:11 12/26/18 07:11 Oxygen Delivery Method Room Air Weight: 201 lb 4.513 oz Body Mass Index (BMI) 26.3 Intake and Output for Last 24 Hours 12/24/18 12/25/18 12/26/18 23:59 23:59 23:59 Intake Total 680 / 680 Balance 680 / 680 General: Alert, Oriented x3, Cooperative, No apparent distress HEENT: Atraumatic, PERRLA, EOMI, Normocephalic Oral: Moist Mucosa Neck: Supple, No JVD, Negative Carotid Bruits Lungs: Clear to auscultation, Normal air movement, No rhonchi, No wheeze, No rales Cardiovascular: Regular rate, Regular Rhythm, Normal S1, Normal S2, No murmurs Abdomen: Bowel Sounds Present, Soft, Non Tender, Non-Distended, No Hepato-splenomegaly Extremities: No clubbing, No cyanosis, No edema, Capillary Refill Less than 3 Seconds Skin: No rashes, No breakdown Musculoskeletal: No Tenderness to Palpation of Joints or Extremities Lymphatic: No Cervical, Supraclavicular, or Inguinal Adenopathy Neurological: Cranial nerves II-XII grossly intact, - - minimal expressive aphasia Psych/Mental Status: Normal Affect, Appropriate, Alert and oriented to time, place, person, mood and affect Current Medications Acetaminophen (Tylenol) 650 mg PO Q8H PRN PRN PRN Reason: Mild Pain (0-3/10)/Headache Aspirin (Aspirin, Baby) 81 mg PO DAILYCM [facility] Last Admin: 12/26/18 07:57 Dose: 81 mg Atorvastatin Calcium (Lipitor) 40 mg PO QHS [facility] Last Admin: 12/25/18 21:57 Dose: 40 mg Bisacodyl (Dulcolax) 10 mg RECTAL .PRN X 1 PRN PRN Reason: Constipation Clopidogrel Bisulfate (Plavix) 75 mg PO DAILY [facility] Last Admin: 12/26/18 07:57 Dose: 75 mg Enoxaparin Sodium (Lovenox) 30 mg SC DAILY@0600 [facility] Last Admin: 12/26/18 05:37 Dose: 30 mg Famotidine (Pepcid) 20 mg PO BID [facility] Last Admin: 12/26/18 07:57 Dose: 20 mg Influenza Virus Vaccine Quadrival (Fluarix/Fluzone) 0.5 ml IM .ONCE ONE Stop: 12/27/18 10:01 Magnesium Hydroxide (Milk Of Magnesia) 30 ml PO .PRN X 1 PRN PRN Reason: Constipation Senna/Docusate Sodium (Senokot-S, Susu-Colace) 2 tablet PO BID PRN PRN Reason: Constipation Medical Necessity - Tobacco Use Smoking Status: Never smoker Assessment/Plan All Active Problems Debility (Acute) Aphasia (Acute) Left acute arterial ischemic stroke, MCA (middle cerebral artery) (Acute) Aneurysm (Resolved) 1. CVA s/p MCA coiling. * developed a stroke after he had MCA aneurysm coiling. * Patient has improved significantly and he has very minimal right-sided weakness. On aspirin and Plavix as well as * Intensity atorvastatin. PT OT on board. Speech therapy also on board. * Neurology on board. * 2. Left MCA aneurysm: s/p coiling. TO follow up with neurosurgery on outpatient basis DVT prophylaxis: lovenox Code Visit Inpatient E&M: 49385 Subs Hosp L2
[2018-12-26 19:08] VITALS: BP 117/74; PULSE 59; RESP 14; TEMP 36.7; O2SAT 97
--- NOTE | 2018-12-26 19:30 | NURSING ---
SAYS SHE CHECKED WITH PCP'S OFFICE AND PT HAD NOT RECEIVED THIS SEASON.PT DECLINES RECEIVING FLU SHOT.
[2018-12-26] MEDS: Atorvastatin Calcium 40 MG Tablet PO (20:15)
[2018-12-27 05:00] VITALS: BMI 26.3
[2018-12-27] MEDS: Enoxaparin 30 MG/0.3 ML Syringe SC (06:12)
[2018-12-27] MEDS: Clopidogrel Bisulfate 75 MG Tablet PO (07:54)
[2018-12-27] MEDS: Aspirin 81 MG TAB.CHEW PO (07:54)
[2018-12-27] MEDS: Famotidine 20 MG Tablet PO ×2 (07:55→20:39)
[2018-12-27 08:09] VITALS: BP 123/79; PULSE 61; RESP 16; TEMP 36.5; O2SAT 97
--- NOTE | 2018-12-27 10:59 | PCM.PN.NEU ---
Patient Problems: Active and Suspected Problems Debility (Acute) Aphasia (Acute) Left acute arterial ischemic stroke, MCA (middle cerebral artery) (Acute) Subjective: No issues overnight. Care discussed with the nursing staff. Staffed in the team meeting today. All questions were answered. Further therapy details per PT/OT/ST notes. - Physical Exam General: Alert HEENT: Normocephalic Neck: Supple Lungs: Normal air movement Cardiovascular: Normal S1, Normal S2 Abdomen: Bowel Sounds Present Extremities: No cyanosis Neurological: - - consious, alert, AoAx3, CN 2-12 grossly intact, has mild to moderate expressive aphasia, with some receptive deficits, power 5/5 both UE/LE, no sensory loss, no cerebellar signs, Reflexes + B/L B/S/T/K/A, gait normal. NIHSS 2 at present, mRS 0 at baseline. Psych/Mental Status: Normal Affect Vital Signs Temp Pulse Resp BP Pulse Ox 97.7 F L 61 16 123/79 H 97 12/27/18 08:09 12/27/18 08:09 12/27/18 08:09 12/27/18 08:09 12/27/18 08:09 Oxygen Delivery Method Room Air Weight: 91.3 kg Body Mass Index (BMI) 26.3 Intake and Output for Last 24 Hours 12/25/18 12/26/18 12/27/18 23:59 23:59 23:59 Intake Total 680 / 680 440 / 440 Balance 680 / 680 440 / 440 Medical Necessity - Tobacco Use Smoking Status: Never smoker Assessment/Plan All Active Problems Debility (Acute) Aphasia (Acute) Left acute arterial ischemic stroke, MCA (middle cerebral artery) (Acute) Aneurysm (Resolved) The patient is a 48 year old M with [facility] Left MCA aneurysm s/p coiling 12/18/[address] Dahl at [facility] complicated by aphasia, found to have left MCA stroke with left superior temporal occlusion in follow up catheter angiogram per documentation, admitted to [facility] on 12/22/18 with debility s/p acute Left MCA stroke, for > 3 hrs therapy daily with a goal of returning home at or near his prior level of functional independence. Per [facility] note documentation patient had NIHSS of 5 on 12/18/2018, MRA angiogram done on 12/14/2018 reported to show distal Left MCA aneurysm fo which he underwent coiling at [facility]. At present patient continues to have expressive aphasia, denies any weakness, headache, dizziness, focal motor weakness or sensory loss. He lives with his , in a 2 jae house and has 4 steps to get into the house, denies any falls, does not use cane or walker to ambulate and does drive. Per patient he did not need any assistance for his ADLs prior to the event. He has been started on ASA/Plavix and Lipitor post stroke. Also has short-term memory issues post stroke. Plan -PT for gait stability -OT for ADLs -ST -Bowel protocol -Analgesics as needed -Labs reviewed-Repeat ALT normalized. -Acute left MCA stroke- on ASA/Plavix and Lipitor -Left MCA aneurysm- s/p coiling by Dr. Dahl at [facility] 12/18/2018 -Goal BP < 130/80 mmHg -GI/DVT prophylaxis- Famotidine/Lovenox -Fall precautions -Further medical management per hospitalist recommendation -Follow up with Neurology, PCP and Dr. Dahl after discharge
--- NOTE | 2018-12-27 12:13 | CASEMGMT ---
Team meeting held. Patient present as well as patient spouse. No discharge date set. Patient to continue with further care and treatment with plan to re-team patient next week. Patient with insurance update due on 12/28/18 and aware that continued stay approval is not guaranteed. Speech therapy is recommending for patient to have outpatient speech therapy services at time of discharge. Patient and patient spouse are agreeable to recommendation for speech therapy and requesting for services to be set up through [facility]. Support given. Will continue to follow. Pamela LANDERS, DAVID
[2018-12-27 16:53] VITALS: BMI 26.3
[2018-12-27] MEDS: Atorvastatin Calcium 40 MG Tablet PO (20:39)
[2018-12-27 21:06] VITALS: BP 126/72; PULSE 61; RESP 16; TEMP 36.7; O2SAT 97
[2018-12-28] MEDS: Enoxaparin 30 MG/0.3 ML Syringe SC (05:14)
[2018-12-28 08:14] VITALS: BP 112/75; PULSE 57; RESP 12; TEMP 36.6; O2SAT 96
[2018-12-28] MEDS: Aspirin 81 MG TAB.CHEW PO (08:24)
[2018-12-28] MEDS: Famotidine 20 MG Tablet PO ×2 (08:24→20:19)
[2018-12-28] MEDS: Clopidogrel Bisulfate 75 MG Tablet PO (08:24)
--- NOTE | 2018-12-28 10:09 | CASEMGMT ---
Social Work Telephone call from Leila Sumner, intensive clinical case manager for patient. P: [phone]. Leila available for assistance with resources if needed. Pamela LANDERS, DAVID
--- NOTE | 2018-12-28 10:55 | CASEMGMT ---
Insurance Clinical information sent. Pending continued stay approval at this time. Auth#[id number] Pamela LANDERS, DAVID
--- NOTE | 2018-12-28 11:27 | PN.NEURO_ITS ---
Patient Problems: Active and Suspected Problems Debility (Acute) Aphasia (Acute) Left acute arterial ischemic stroke, MCA (middle cerebral artery) (Acute) Subjective: No issues overnight. Care discussed with the nursing staff. - Physical Exam General: Alert HEENT: Normocephalic Neck: Supple Lungs: Normal air movement Cardiovascular: Normal S1, Normal S2 Abdomen: Bowel Sounds Present Extremities: No cyanosis Neurological: - - consious, alert, AoAx3, CN 2-12 grossly intact, has mild to moderate expressive aphasia, with some receptive deficits, power 5/5 both UE/LE, no sensory loss, no cerebellar signs, Reflexes + B/L B/S/T/K/A, gait normal. NIHSS 2 at present, mRS 0 at baseline. Psych/Mental Status: Normal Affect Vital Signs Temp Pulse Resp BP Pulse Ox 97.9 F 57 L 12 112/75 96 12/28/18 08:14 12/28/18 08:14 12/28/18 08:14 12/28/18 08:14 12/28/18 08:14 Oxygen Delivery Method Room Air Weight: 91.3 kg Body Mass Index (BMI) 26.3 Intake and Output for Last 24 Hours 12/26/18 12/27/18 12/28/18 23:59 23:59 23:59 Intake Total 560 / 560 480 / 480 Balance 560 / 560 480 / 480 Medical Necessity - Tobacco Use Smoking Status: Never smoker Assessment/Plan All Active Problems Debility (Acute) Aphasia (Acute) Left acute arterial ischemic stroke, MCA (middle cerebral artery) (Acute) Aneurysm (Resolved) The patient is a 48 year old M with H Left MCA aneurysm s/p coiling 12/18/[address] Dahl at [facility] complicated by aphasia, found to have left MCA stroke with left superior temporal occlusion in follow up catheter angiogram per documentation, admitted to [facility] on 12/22/18 with debility s/p acute Left MCA stroke, for > 3 hrs therapy daily with a goal of returning home at or near his prior level of functional independence. Per [facility] note documentation patient had NIHSS of 5 on 12/18/2018, MRA angiogram done on 12/14/2018 reported to show distal Left MCA aneurysm fo which he underwent coiling at [facility]. At present patient c ontinues to have expressive aphasia, denies any weakness, headache, dizziness, focal motor weakness or sensory loss. He lives with his , in a 2 jae house and has 4 steps to get into the house, denies any falls, does not use cane or walker to ambulate and does drive. Per patient he did not need any assistance for his ADLs prior to the event. He has been started on ASA/Plavix and Lipitor post stroke. Also has short-term memory issues post stroke. Plan -PT for gait stability -OT for ADLs -ST -Bowel protocol -Analgesics as needed -Labs reviewed-Repeat ALT normalized. -Acute left MCA stroke- on ASA/Plavix and Lipitor -Left MCA aneurysm- s/p coiling by Dr. Dahl at [facility] 12/18/2018 -Goal BP < 130/80 mmHg -GI/DVT prophylaxis- Famotidine/Lovenox -Fall precautions -Further medical management per hospitalist recommendation -Follow up with Neurology, PCP and Dr. Dahl after discharge
--- NOTE | 2018-12-28 14:48 | CASEMGMT ---
Insurance Continued stay approved with next update due on 01/04/19 Auth#[id number] Pamela LANDERS, DAVID
[2018-12-28 16:15] VITALS: BMI 26.3
[2018-12-28 20:12] VITALS: BP 113/73; PULSE 63; RESP 16; TEMP 36.9; O2SAT 93
[2018-12-28] MEDS: Atorvastatin Calcium 40 MG Tablet PO (20:19)
[2018-12-29 00:34] VITALS: BMI 26.3
[2018-12-29] MEDS: Enoxaparin 30 MG/0.3 ML Syringe SC (05:53)
[2018-12-29 07:56] VITALS: BP 122/75; PULSE 63; RESP 18; TEMP 36.1; O2SAT 96
[2018-12-29] MEDS: Clopidogrel Bisulfate 75 MG Tablet PO (08:16)
[2018-12-29] MEDS: Famotidine 20 MG Tablet PO ×2 (08:16→20:23)
[2018-12-29] MEDS: Aspirin 81 MG TAB.CHEW PO (08:16)
[2018-12-29 16:28] VITALS: BMI 26.3
--- NOTE | 2018-12-29 17:11 | PN_ITS ---
Patient Problems: Active and Suspected Problems Debility (Acute) Aphasia (Acute) Left acute arterial ischemic stroke, MCA (middle cerebral artery) (Acute) Subjective: Patient seen and examined. He had no complaints. Family is by his bedside. Therapy is going well. Review of systems otherwise negative. Vitals reviewed. Vitals/I&O's: Vital Signs Temp Pulse Resp BP Pulse Ox 97.0 F L 63 18 122/75 H 96 12/29/18 07:56 12/29/18 07:56 12/29/18 07:56 12/29/18 07:56 12/29/18 07:56 Oxygen Delivery Method Room Air Weight: 201 lb 4.513 oz Body Mass Index (BMI) 26.3 Intake and Output for Last 24 Hours 12/27/18 12/28/18 12/29/18 23:59 23:59 23:59 Intake Total 560 / 560 960 / 960 Balance 560 / 560 960 / 960 General: Alert, Oriented x3, Cooperative, No apparent distress HEENT: Atraumatic, PERRLA, EOMI, Normocephalic Oral: Moist Mucosa Neck: Supple, No JVD, Negative Carotid Bruits Lungs: Clear to auscultation, Normal air movement, No rhonchi, No wheeze, No rales Cardiovascular: Regular rate, Regular Rhythm, Normal S1, Normal S2, No murmurs Abdomen: Bowel Sounds Present, Soft, Non Tender, Non-Distended, No Hepato- splenomegaly Extremities: No clubbing, No cyanosis, No edema, Capillary Refill Less than 3 Seconds Skin: No rashes, No breakdown Musculoskeletal: No Tenderness to Palpation of Joints or Extremities Lymphatic: No Cervical, Supraclavicular, or Inguinal Adenopathy Neurological: Cranial nerves II-XII grossly intact, - - mild expressive aphasia Psych/Mental Status: Normal Affect, Appropriate, Alert and oriented to time, place, person, mood and affect Current Medications Acetaminophen (Tylenol) 650 mg PO Q8H PRN PRN PRN Reason: Mild Pain (0-3/10)/Headache Aspirin (Aspirin, Baby) 81 mg PO DAILYCM [facility] Last Admin: 12/29/18 08:16 Dose: 81 mg Atorvastatin Calcium (Lipitor) 40 mg PO QHS [facility] Last Admin: 12/28/18 20:19 Dose: 40 mg Bisacodyl (Dulcolax) 10 mg RECTAL .PRN X 1 PRN PRN Reason: Constipation Clopidogrel Bisulfate (Plavix) 75 mg PO DAILY [facility] Last Admin: 12/29/18 08:16 Dose: 75 mg Enoxaparin Sodium (Lovenox) 30 mg SC DAILY@0600 [facility] Last Admin: 12/29/18 05:53 Dose: 30 mg Famotidine (Pepcid) 20 mg PO BID [facility] Last Admin: 12/29/18 08:16 Dose: 20 mg Magnesium Hydroxide (Milk Of Magnesia) 30 ml PO .PRN X 1 PRN PRN Reason: Constipation Senna/Docusate Sodium (Senokot-S, Susu-Colace) 2 tablet PO BID PRN PRN Reason: Constipation Medical Necessity - Tobacco Use Smoking Status: Never smoker Assessment/Plan All Active Problems Debility (Acute) Aphasia (Acute) Left acute arterial ischemic stroke, MCA (middle cerebral artery) (Acute) Aneurysm (Resolved) 1. CVA s/p MCA coiling. * developed a stroke after he had MCA aneurysm coiling. * Patient has improved significantly and he has very minimal right-sided weakness. On aspirin and Plavix as well as * Intensity atorvastatin. PT OT on board. Speech therapy also on board. * Neurology on board. * 2. Left MCA aneurysm: s/p coiling. TO follow up with neurosurgery on outpatient basis DVT prophylaxis: indu Code Visit Inpatient E&M: 32261 Subs Hosp L2
[2018-12-29 20:19] VITALS: BP 121/74; PULSE 63; RESP 16; TEMP 36.6; O2SAT 98
[2018-12-29] MEDS: Atorvastatin Calcium 40 MG Tablet PO (20:23)
[2018-12-29 22:22] VITALS: BMI 26.3
[2018-12-30] MEDS: Enoxaparin 30 MG/0.3 ML Syringe SC (06:15)
[2018-12-30 07:37] VITALS: BP 106/76; PULSE 63; RESP 18; TEMP 36.4; O2SAT 97
[2018-12-30] MEDS: Famotidine 20 MG Tablet PO ×2 (08:14→20:17)
[2018-12-30] MEDS: Aspirin 81 MG TAB.CHEW PO (08:14)
[2018-12-30] MEDS: Clopidogrel Bisulfate 75 MG Tablet PO (08:14)
[2018-12-30 13:38] VITALS: BMI 26.3
[2018-12-30 20:00] VITALS: BP 124/70; PULSE 66; RESP 16; TEMP 36.9; O2SAT 97
[2018-12-30 20:04] VITALS: BMI 26.3
[2018-12-30] MEDS: Atorvastatin Calcium 40 MG Tablet PO (20:17)
[2018-12-31] MEDS: Enoxaparin 30 MG/0.3 ML Syringe SC (05:46)
[2018-12-31 08:36] VITALS: BP 124/68; PULSE 61; RESP 16; TEMP 36.6; O2SAT 97
[2018-12-31] MEDS: Famotidine 20 MG Tablet PO ×2 (08:39→21:29)
[2018-12-31] MEDS: Clopidogrel Bisulfate 75 MG Tablet PO (08:39)
[2018-12-31] MEDS: Aspirin 81 MG TAB.CHEW PO (08:39)
--- NOTE | 2018-12-31 15:17 | PN.NEURO_ITS ---
Patient Problems: Active and Suspected Problems Debility (Acute) Aphasia (Acute) Left acute arterial ischemic stroke, MCA (middle cerebral artery) (Acute) Subjective: New complaints. Tolerating therapies. No GI or complaints. - Physical Exam Neurological: Cranial nerves II-XII grossly intact, - - Severe expressive a aphasia, comprehension appears largely intact Psych/Mental Status: Normal Affect Vital Signs Temp Pulse Resp BP Pulse Ox 36.6 C 61 16 124/68 H 97 12/31/18 08:36 12/31/18 08:36 12/31/18 08:36 12/31/18 08:36 12/31/18 08:36 Oxygen Delivery Method Room Air Weight: 91.3 kg Body Mass Index (BMI) 26.3 Intake and Output for Last 24 Hours 12/29/18 12/30/18 12/31/18 23:59 23:59 23:59 Intake Total 880 / 880 Balance 880 / 880 Medical Necessity - Tobacco Use Smoking Status: Never smoker Assessment/Plan All Active Problems Debility (Acute) Aphasia (Acute) Left acute arterial ischemic stroke, MCA (middle cerebral artery) (Acute) Aneurysm (Resolved) The patient is a 48 year old M with [facility] Left MCA aneurysm s/p coiling 12/18/[address] Dahl at [facility] complicated by aphasia, found to have left MCA stroke with left superior temporal occlusion in follow up catheter angiogram per documentation, admitted to [facility] on 12/22/18 with debility s/p acute Left MCA stroke, for > 3 hrs therapy daily with a goal of returning home at or near his prior level of functional independence. Plan -PT for gait stability -OT for ADLs -ST -Bowel protocol -Analgesics as needed -Labs reviewed-Repeat ALT normalized. -Acute left MCA stroke- on ASA/Plavix and Lipitor -Left MCA aneurysm- s/p coiling by Dr. Dahl at [facility] 12/18/2018 -Goal BP < 130/80 mmHg -GI/DVT prophylaxis- Famotidine/Lovenox -Fall precautions -Further medical management per hospitalist recommendation -Follow up with Neurology, PCP and Dr. Dahl after discharge
--- NOTE | 2018-12-31 16:36 | PN_ITS ---
Patient Problems: Active and Suspected Problems Debility (Acute) Aphasia (Acute) Left acute arterial ischemic stroke, MCA (middle cerebral artery) (Acute) Subjective: Patient seen and examined. He had no complaints. Review of systems otherwise negative. Labs and vitals reviewed. Vitals/I&O's: Vital Signs Temp Pulse Resp BP Pulse Ox 97.8 F 61 16 124/68 H 97 12/31/18 08:36 12/31/18 08:36 12/31/18 08:36 12/31/18 08:36 12/31/18 08:36 Oxygen Delivery Method Room Air Weight: 201 lb 4.513 oz Body Mass Index (BMI) 26.3 Intake and Output for Last 24 Hours 12/29/18 12/30/18 12/31/18 23:59 23:59 23:59 Intake Total 880 / 880 Balance 880 / 880 General: Alert, Oriented x3, Cooperative, No apparent distress HEENT: Atraumatic, PERRLA, EOMI, Normocephalic Oral: Moist Mucosa Neck: Supple, No JVD, Negative Carotid Bruits Lungs: Clear to auscultation, Normal air movement, No rhonchi, No wheeze, No rales Cardiovascular: Regular rate, Regular Rhythm, Normal S1, Normal S2, No murmurs Abdomen: Bowel Sounds Present, Soft, Non Tender, Non-Distended, No Hepato- splenomegaly Extremities: No clubbing, No cyanosis, No edema, Capillary Refill Less than 3 Seconds Skin: No rashes, No breakdown Musculoskeletal: No Tenderness to Palpation of Joints or Extremities Lymphatic: No Cervical, Supraclavicular, or Inguinal Adenopathy Neurological: Cranial nerves II-XII grossly intact, - - mild expressive aphasia Psych/Mental Status: Normal Affect, Appropriate, Alert and oriented to time, place, person, mood and affect Current Medications Acetaminophen (Tylenol) 650 mg PO Q8H PRN PRN PRN Reason: Mild Pain (0-3/10)/Headache Aspirin (Aspirin, Baby) 81 mg PO DAILYCM [facility] Last Admin: 12/31/18 08:39 Dose: 81 mg Atorvastatin Calcium (Lipitor) 40 mg PO QHS [facility] Last Admin: 12/30/18 20:17 Dose: 40 mg Bisacodyl (Dulcolax) 10 mg RECTAL .PRN X 1 PRN PRN Reason: Constipation Clopidogrel Bisulfate (Plavix) 75 mg PO DAILY [facility] Last Admin: 12/31/18 08:39 Dose: 75 mg Enoxaparin Sodium (Lovenox) 30 mg SC DAILY@0600 [facility] Last Admin: 12/31/18 05:46 Dose: 30 mg Famotidine (Pepcid) 20 mg PO BID [facility] Last Admin: 12/31/18 08:39 Dose: 20 mg Magnesium Hydroxide (Milk Of Magnesia) 30 ml PO .PRN X 1 PRN PRN Reason: Constipation Senna/Docusate Sodium (Senokot-S, Susu-Colace) 2 tablet PO BID PRN PRN Reason: Constipation Medical Necessity - Tobacco Use Smoking Status: Never smoker Assessment/Plan All Active Problems Debility (Acute) Aphasia (Acute) Left acute arterial ischemic stroke, MCA (middle cerebral artery) (Acute) Aneurysm (Resolved) 1. CVA s/p MCA coiling. * developed a stroke after he had MCA aneurysm coiling. * Patient has improved significantly and he has very minimal right-sided weakness. On aspirin and Plavix and high intensity atorvastatin * PT OT on board. Speech therapy also on board. * Neurology on board. * 2. Left MCA aneurysm: s/p coiling. TO follow up with neurosurgery on outpatient basis DVT prophylaxis: jordynox Code Visit Inpatient E&M: 74020 [facility] Hosp L2
--- NOTE | 2018-12-31 16:57 | CASEMGMT ---
Social Work Met with patient spouse, Trinidad. Trinidad expressing concerns with patient returning to home and adjusting to life changes. Trinidad expressing that family and patient were currently in family counseling prior to patient hospitalization. This social welfare clerk encouraging Trinidad to continue with family counseling with patient after discharge. Trinidad reporting to feel safe at home with patient but concerned at what patient may try to do and the chances of patient making unsafe choices. Trinidad asking about chances of continued stay past this weekend for patient. This social welfare clerk reporting to have to have this discussion further with team on , Trinidad planning to bring this up. Trinidad aware that patient is doing well in both P.T/O.T and that main deficits are in areas related to S.L.P. Trinidad plans for patient to return home where Trinidad and patient family will attempt to provide a safe environment for patient but aware that patient might make unsafe choices. This social welfare clerk also providing Trinidad with information about [employer]. Trinidad thanking this social welfare clerk. Support provided. Will continue to follow as needed. Pamela Felix MSW, DAVID
[2018-12-31 17:00] VITALS: BMI 26.3
[2018-12-31 19:19] VITALS: BP 119/71; PULSE 60; RESP 16; TEMP 36.5; O2SAT 97
[2018-12-31] MEDS: Atorvastatin Calcium 40 MG Tablet PO (21:29)
[2018-12-31 21:30] VITALS: PULSE 60; RESP 16; O2SAT 97; BMI 26.3
--- NOTE | 2019-01-01 02:50 | NURSING ---
Reviewed and agree with [employer] documentation and FIMs charting.
[2019-01-01] MEDS: Enoxaparin 30 MG/0.3 ML Syringe SC (05:39)
[2019-01-01 07:45] VITALS: BP 123/81; PULSE 59; RESP 18; TEMP 36.6; O2SAT 97
[2019-01-01] MEDS: Clopidogrel Bisulfate 75 MG Tablet PO (08:39)
[2019-01-01] MEDS: Aspirin 81 MG TAB.CHEW PO (08:39)
[2019-01-01] MEDS: Famotidine 20 MG Tablet PO ×2 (08:39→20:52)
[2019-01-01 15:25] VITALS: BMI 26.3
[2019-01-01 18:57] VITALS: BP 125/85; PULSE 66; RESP 16; TEMP 36.8; O2SAT 97
[2019-01-01 20:52] VITALS: BMI 26.3
[2019-01-01] MEDS: Atorvastatin Calcium 40 MG Tablet PO (20:52)
[2019-01-01 20:53] VITALS: PULSE 66
[2019-01-02] MEDS: Enoxaparin 30 MG/0.3 ML Syringe SC (05:40)
[2019-01-02] MEDS: Famotidine 20 MG Tablet PO ×2 (07:31→19:11)
[2019-01-02] MEDS: Clopidogrel Bisulfate 75 MG Tablet PO (07:31)
[2019-01-02] MEDS: Aspirin 81 MG TAB.CHEW PO (07:31)
[2019-01-02 07:32] VITALS: BP 117/78; PULSE 60; RESP 18; TEMP 36.4; O2SAT 97
[2019-01-02 10:05] VITALS: BMI 26.3
[2019-01-02 19:05] VITALS: BP 142/84; PULSE 74; RESP 16; TEMP 36.6; O2SAT 97
[2019-01-02] MEDS: Atorvastatin Calcium 40 MG Tablet PO (19:11)
[2019-01-02 20:28] VITALS: BMI 26.3
[2019-01-02 22:00] VITALS: PULSE 74
[2019-01-03] MEDS: Enoxaparin 30 MG/0.3 ML Syringe SC (05:44)
[2019-01-03 07:08] VITALS: BP 123/74; PULSE 67; RESP 16; TEMP 36.6; O2SAT 95
[2019-01-03] MEDS: Famotidine 20 MG Tablet PO ×2 (07:39→23:25)
[2019-01-03] MEDS: Aspirin 81 MG TAB.CHEW PO (07:39)
[2019-01-03] MEDS: Clopidogrel Bisulfate 75 MG Tablet PO (07:39)
[2019-01-03] MEDS: Escitalopram Oxalate 10 MG Tablet PO (10:52)
--- NOTE | 2019-01-03 12:37 | PCM.PN.NEU ---
Patient Problems: Active and Suspected Problems Debility (Acute) Aphasia (Acute) Left acute arterial ischemic stroke, MCA (middle cerebral artery) (Acute) Subjective: Vianca team meeting today. His and brother are both present. Physical therapy and occupational therapy notes that he is doing very well, able to ascend 80 steps, good balance, he was outside with physical therapy yesterday and able to negotiate uneven surfaces including the lawn. Continues to have naming issues but speech therapy is noting improved progression. No issues from a nursing standpoint. Possible discharge tomorrow or Monday although family definitely requests that he have ongoing speech therapy regardless. - Physical Exam General: Alert, Oriented x3, Cooperative, No apparent distress Neurological: Cranial nerves II-XII grossly intact Psych/Mental Status: Normal Affect, Alert and oriented to time, place, person, mood and affect Vital Signs Temp Pulse Resp BP Pulse Ox 36.6 C 67 16 123/74 H 95 01/03/19 07:08 01/03/19 07:08 01/03/19 07:08 01/03/19 07:08 01/03/19 07:08 Oxygen Delivery Method Room Air Weight: 94.2 kg Body Mass Index (BMI) 26.3 Intake and Output for Last 24 Hours 01/01/19 01/02/19 01/03/19 23:59 23:59 23:59 Intake Total 440 / 440 480 / 480 Balance 440 / 440 480 / 480 Medical Necessity - Tobacco Use Smoking Status: Never smoker Assessment/Plan All Active Problems Debility (Acute) Aphasia (Acute) Left acute arterial ischemic stroke, MCA (middle cerebral artery) (Acute) Aneurysm (Resolved) The patient is a 48 year old M with [facility] Left MCA aneurysm s/p coiling 12/18/[address] Dahl at [facility] complicated by aphasia, found to have left MCA stroke with left superior temporal occlusion in follow up catheter angiogram per documentation, admitted to [facility] on 12/22/18 with debility s/p acute Left MCA stroke, for > 3 hrs therapy daily with a goal of returning home at or near his prior level of functional independence. Plan -PT for gait stability -OT for ADLs -ST -Bowel protocol -Analgesics as needed -Labs reviewed-Repeat ALT normalized. -Acute left MCA stroke- on ASA/Plavix and Lipitor -Left MCA aneurysm- s/p coiling by Dr. Dahl at [facility] 12/18/2018 -Goal BP < 130/80 mmHg -GI/DVT prophylaxis- Famotidine/Lovenox -Fall precautions -Further medical management per hospitalist recommendation -Follow up with Neurology, PCP and Dr. Dahl after discharge
--- NOTE | 2019-01-03 12:59 | DCINST_ITS ---
- Discharge Diagnoses Current Active Problems: Current Active and Chronic Problems Debility (Acute) Aphasia (Acute) Left acute arterial ischemic stroke, MCA (middle cerebral artery) (Acute) Reason(s) for Visit for Discharge Instructions: Debility status post left MCA distribution infarct You will use the following diet at home:: No restrictions, Regular Your food should be the consistency of: Regular Your liquids should be the consistency of: Regular/Thin Discharge Activity: Return to Normal Activity, May Not Drive Weight Bearing Status: Full weight bearing Lifting Restrictions: 10 pounds Allergies/Adverse Reactions: Allergies No Known Allergies Allergy (Verified 12/22/18 18:38) Medications to take at Discharge Aspirin 81 mg PO DAILY 12/22/18 Atorvastatin Calcium [Lipitor] 40 mg PO QHS #30 tab 01/03/19 Bisacodyl [Dulcolax] 10 mg RECTAL .PRN X 1 PRN suppos. 01/03/19 Clopidogrel Bisulfate [Plavix] 75 mg PO DAILY #90 tab 01/03/19 Escitalopram Oxalate [Lexapro] 10 mg PO DAILY #30 tab 01/03/19 Famotidine [Pepcid] 20 mg PO BID #60 tab 01/03/19 The following prescriptions were given: Atorvastatin Calcium [Lipitor] 40 mg PO QHS #30 tab Clopidogrel Bisulfate [Plavix] 75 mg PO DAILY #90 tab Escitalopram Oxalate [Lexapro] 10 mg PO DAILY #30 tab Famotidine [Pepcid] 20 mg PO BID #60 tab Primary Care Physician: Diego Eaton MD [Primary Care Provider] - Test Results: Test results from this visit will be discussed in further detail at your follow- up appointment, if applicable. Please Follow Up With: Joana neurology When: Call for an appointment Proposed Discharge Date: 01/04/19
--- NOTE | 2019-01-03 13:00 | PCM.RU.DC ---
Rehab Discharge Summary DATE OF ADMISSION: 12/22/18 DATE OF DISCHARGE: 01/04/19 - Rehab Diagnosis Debility status post left MCA distribution infarct Patient Problems: Active and Suspected Problems Debility (Acute) Aphasia (Acute) Left acute arterial ischemic stroke, MCA (middle cerebral artery) (Acute) - Physical Exam General: Alert, Oriented x3, Cooperative, No apparent distress HEENT: Atraumatic, PERRLA, EOMI, Normocephalic Neck: Supple Lungs: Clear to auscultation Cardiovascular: Regular rate Abdomen: Bowel Sounds Present Extremities: No edema, No Calf Tenderness Musculoskeletal: No Tenderness to Palpation of Joints or Extremities Neurological: Cranial nerves II-XII grossly intact, - - Severe expressive a aphasia, comprehensive is largely intact Psych/Mental Status: Normal Affect, Alert and oriented to time, place, person, mood and affect Vital Signs Temp Pulse Resp BP Pulse Ox 36.6 C 67 16 123/74 H 95 01/03/19 07:08 01/03/19 07:08 01/03/19 07:08 01/03/19 07:08 01/03/19 07:08 Oxygen Delivery Method Room Air Weight: 94.2 kg Body Mass Index (BMI) 26.3 Intake and Output for Last 24 Hours 01/01/19 01/02/19 01/03/19 23:59 23:59 23:59 Intake Total 440 / 440 480 / 480 Balance 440 / 440 480 / 480 Discharge Diet: No Restrictions Discharge Activity: Return to Normal Activity, May Not Drive Weight Bearing Status: Full weight bearing Lifting Restrict to (lbs):: 10 Home Medications: Medications to take at Discharge Aspirin 81 mg PO DAILY 12/22/18 Atorvastatin Calcium [Lipitor] 40 mg PO QHS #30 tab 01/03/19 Bisacodyl [Dulcolax] 10 mg RECTAL .PRN X 1 PRN suppos. 01/03/19 Clopidogrel Bisulfate [Plavix] 75 mg PO DAILY #90 tab 01/03/19 Escitalopram Oxalate [Lexapro] 10 mg PO DAILY #30 tab 01/03/19 Famotidine [Pepcid] 20 mg PO BID #60 tab 01/03/19 Following Prescrptions Were Given to Patient: Atorvastatin Calcium [Lipitor] 40 mg PO QHS #30 tab Clopidogrel Bisulfate [Plavix] 75 mg PO DAILY #90 tab Escitalopram Oxalate [Lexapro] 10 mg PO DAILY #30 tab Famotidine [Pepcid] 20 mg PO BID #60 tab Primary Care Physician: Diego Eaton MD [Primary Care Provider] - Please Follow Up With: Joana neurology When: Call for an appointment Disposition: Home Minutes spent on discharge:: 40 Patient Condition:: Good Rehab Course The patient is a 48 year old M with H Left MCA aneurysm s/p coiling 12/18/[address] Dahl at [facility] complicated by aphasia, found to have left MCA stroke with left superior temporal occlusion in follow up catheter angiogram per documentation, admitted to [facility] on 12/22/18 with debility s/p acute Left MCA stroke, for > 3 hrs therapy daily with a goal of returning home at or near his prior level of functional independence. Per [facility] note documentation patient had NIHSS of 5 on 12/18/2018, MRA angiogram done on 12/14/2018 reported to show distal Left MCA aneurysm for which he underwent coiling at [facility]. At present patient continues to have expressive aphasia, denies any weakness, headache, dizziness, focal motor weakness or sensory loss. He lives with his , in a 2 jae house and has 4 steps to get into the house, denies any falls, does not use cane or walker to ambulate and does drive. Per patient he did not need any assistance for his ADLs prior to the event. He has been started on ASA/Plavix and Lipitor post stroke. His stay in the rehab unit was uneventful. He continued to improve and received maximal benefit from therapy. He was discharged home in good condition with instructions to continue mainly speech therapy. [place] and is very active he was instructed to avoid operating heavy machinery until cleared by his physician. Meaningful Use Info Meaningful Use Diagnoses (Choose all that apply): None applicable
--- NOTE | 2019-01-03 13:03 | DS.PCM_ITS ---
Rehab Discharge Summary DATE OF ADMISSION: 12/22/18 DATE OF DISCHARGE: 01/04/19 - Rehab Diagnosis Debility status post left MCA distribution infarct Patient Problems: Active and Suspected Problems Debility (Acute) Aphasia (Acute) Left acute arterial ischemic stroke, MCA (middle cerebral artery) (Acute) - Physical Exam General: Alert, Oriented x3, Cooperative, No apparent distress HEENT: Atraumatic, PERRLA, EOMI, Normocephalic Neck: Supple Lungs: Clear to auscultation Cardiovascular: Regular rate Abdomen: Bowel Sounds Present Extremities: No edema, No Calf Tenderness Musculoskeletal: No Tenderness to Palpation of Joints or Extremities Neurological: Cranial nerves II-XII grossly intact, - - Severe expressive a aphasia, comprehensive is largely intact Psych/Mental Status: Normal Affect, Alert and oriented to time, place, person, mood and affect Vital Signs Temp Pulse Resp BP Pulse Ox 36.6 C 67 16 123/74 H 95 01/03/19 07:08 01/03/19 07:08 01/03/19 07:08 01/03/19 07:08 01/03/19 07:08 Oxygen Delivery Method Room Air Weight: 94.2 kg Body Mass Index (BMI) 26.3 Intake and Output for Last 24 Hours 01/01/19 01/02/19 01/03/19 23:59 23:59 23:59 Intake Total 440 / 440 480 / 480 Balance 440 / 440 480 / 480 Discharge Diet: No Restrictions Discharge Activity: Return to Normal Activity, May Not Drive Weight Bearing Status: Full weight bearing Lifting Restrict to (lbs):: 10 Home Medications: Medications to take at Discharge Aspirin 81 mg PO DAILY 12/22/18 Atorvastatin Calcium [Lipitor] 40 mg PO QHS #30 tab 01/03/19 Bisacodyl [Dulcolax] 10 mg RECTAL .PRN X 1 PRN suppos. 01/03/19 Clopidogrel Bisulfate [Plavix] 75 mg PO DAILY #90 tab 01/03/19 Escitalopram Oxalate [Lexapro] 10 mg PO DAILY #30 tab 01/03/19 Famotidine [Pepcid] 20 mg PO BID #60 tab 01/03/19 Following Prescrptions Were Given to Patient: Atorvastatin Calcium [Lipitor] 40 mg PO QHS #30 tab Clopidogrel Bisulfate [Plavix] 75 mg PO DAILY #90 tab Escitalopram Oxalate [Lexapro] 10 mg PO DAILY #30 tab Famotidine [Pepcid] 20 mg PO BID #60 tab Primary Care Physician: Diego Eaton MD [Primary Care Provider] - Please Follow Up With: Joana neurology When: Call for an appointment Disposition: Home Minutes spent on discharge:: 40 Patient Condition:: Good Rehab Course The patient is a 48 year old M with H Left MCA aneurysm s/p coiling 12/18/[address] Dahl at [facility] complicated by aphasia, found to have left MCA stroke with left superior temporal occlusion in follow up catheter angiogram per documentation, admitted to [facility] on 12/22/18 with debility s/p acute Left MCA stroke, for > 3 hrs therapy daily with a goal of returning home at or near his prior level of functional independence. Per [facility] note documentation patient had NIHSS of 5 on 12/18/2018, MRA angiogram done on 12/14/2018 reported to show distal Left MCA aneurysm for which he underwent coiling at [facility]. At present patient continues to have expressive aphasia, denies any weakness, headache, dizziness, focal motor weakness or sensory loss. He lives with his , in a 2 jae house and has 4 steps to get into the house, denies any falls, does not use cane or walker to ambulate and does drive. Per patient he did not need any assistance for his ADLs prior to the event. He has been started on ASA/Plavix and Lipitor post stroke. His stay in the rehab unit was uneventful. He continued to improve and received maximal benefit from therapy. He was discharged home in good condition with instructions to continue mainly speech therapy. [place] with [place] and is very active he was instructed to avoid operating heavy machinery until cleared by his physician. Meaningful Use Info Meaningful Use Diagnoses (Choose all that apply): None applicable
[2019-01-03 13:49] VITALS: BMI 26.3
--- NOTE | 2019-01-03 15:09 | CASEMGMT ---
Social Work Team meeting held today with pt, and pt brother present. Pt is paticipating in PT/OT/ST and progressing. No d/c date set at this time. Pt and family aware that insurance update is due tomorrow and that continued stay is not guaranteed. Pt plans to return home with and family is aware 24 hour supervision is recommended. Outpt ST and OT are also recommended. Will reteam next week. MAYLIN Moore
[2019-01-03 22:00] VITALS: BP 121/70; PULSE 62; RESP 16; TEMP 36.6; O2SAT 96
[2019-01-03] MEDS: Atorvastatin Calcium 40 MG Tablet PO (23:25)
[2019-01-04 05:00] VITALS: BMI 26.3
[2019-01-04] MEDS: Enoxaparin 30 MG/0.3 ML Syringe SC (05:12)
[2019-01-04 07:12] VITALS: BP 116/76; PULSE 61; RESP 12; TEMP 36.5; O2SAT 97
[2019-01-04] MEDS: Clopidogrel Bisulfate 75 MG Tablet PO (08:13)
[2019-01-04] MEDS: Aspirin 81 MG TAB.CHEW PO (08:14)
[2019-01-04] MEDS: Famotidine 20 MG Tablet PO (08:14)
[2019-01-04] MEDS: Escitalopram Oxalate 10 MG Tablet PO (08:14)
--- NOTE | 2019-01-04 12:21 | CASEMGMT ---
Insurance: Continued stay review faxed. auth # [id number] VAZQUEZ Saleem
--- NOTE | 2019-01-04 13:32 | CASEMGMT ---
SW met with patient. Introduced self and role at [facility]. SW explained PHQ-9 and the purpose. Patient was willing to participate. His biggest struggle is his speech. Patient scored a 3. However, per SW, Paemla patient's feels patient is showing signs of Depression. SW did leave a list of resources for patient. SW encouraged him to reach out for help and that it is ok if he needs help. SW explained it is understandable to have difficulties with Depression after having a Stroke as things have changed from how they were before. SW told him it can take some time. Jovana HERNANDEZ [employer]
--- NOTE | 2019-01-04 13:50 | CASEMGMT ---
Insurance: TC to insurance company to check on continued stay review. Per Isabela, patient no longer meets criteria for continued stay in IRF level of care and no additional days will be approved. Patient's last covered day was yesterday 01/03/19 with anticipated D/C planned for today. Auth # [id number] VAZQUEZ Saleem
--- NOTE | 2019-01-04 14:01 | CASEMGMT ---
Social Work: TC to patient's . Voice mail message left regarding D/C for today due to insurance continued stay denial. CJ Gutierrez aware of D/C planned for today. Will continue to follow for D/C planning. VAZQUEZ Saleem
--- NOTE | 2019-01-04 14:20 | CASEMGMT ---
Social Work: Returned call from patient's . This SW informed that [facility] has denied continued stay and that patient LCD is 01/03/19 with D/C to be planned for today. Patient's with concerns regarding patient's discharge today due to continued need for speech therapy. This SW explained that the insurance denial determination was based on the patient no longer meeting criteria for IRF level of care as patient is ambulating over 1,000 feet at SBA and is able to do all ADL's with supervision. This SW explained that the continued need for speech therapy can be done as an outpatient, per insurance nurse reviewer. aware of therapy recommendation for outpatient ST/OT. Patient's is requesting order for outpatient [employer] and outaptient OT be faxed to [facility]. Patient's is [facility] and is agreeable to do so. Much active listening and support given. TC to Tara at [facility]. Tara aware that patient's will be calling in to schedule appointments. Orders faxed to [facility]. PLAN: Patient to return home with and outpatient ST/OT. VAZQUEZ Saleem
[2019-01-04 16:36] VITALS: BMI 26.3
--- NOTE | 2019-01-04 17:49 | NURSING ---
Patient and verbalized understanding to discharge instructions given. aware to call [facility] to schedule outpatient OT and ST.
[2019-01-04 17:52] VITALS: BP 116/76; PULSE 61; RESP 12; TEMP 36.5; O2SAT 97
--- NOTE | 2019-01-07 08:36 | CASEMGMT ---
Addendum entered by Nathaly Mora 01/07/19 08:40: Correction: Patient's insurance auth # is [id number]. Original Note: Insurance: TC to Isabela at [facility]. Isabela aware that patient was discharged on Monday01/04/19 with outpatient ST/OT. Auth #[id number]. VAZQUEZ Saleem
== END 2019-01-04 17:54 | disposition home or self-care (01) | DRG 57 ==
PROVIDERS: Admitting Provider Psychiatry & Neurology Neurology; Family Provider Family Medicine; PCP Family Medicine; Referring Provider Psychiatry & Neurology Neurology; Visit Provider Internal Medicine
DX: I69.351 Hemiplegia and hemiparesis following cerebral infarction affecting right dominant side (principal); I69.320 Aphasia following cerebral infarction; Z23 Encounter for immunization; I67.1 Cerebral aneurysm, nonruptured; I69.311 Memory deficit following cerebral infarction
CPT/HCPCS: 36415; 80053; 84460; 85025; 92507; 92523; 97110; 97112; 97116; 97127; 97161; 97166; 97530; 97535; 97802; 90686; G0515

== ENCOUNTER → 2019-03-29 07:18 | Outpatient (CLI) | payer OTHER, SELFPAY ==
--- NOTE | 2019-04-04 10:26 | EEG_ITS ---
- Electroencephalogram Date of service 03/29/2019 This is an 18 channel electroencephalogram performed utilizing the International 10-20 electrode placement protocol along with hyperventilation, photic stimulation and EKG reference leads on this 48-year-old male with a history of confusion and disorientation as well as stroke. Background activity is 9 Hz sym metrically in the posterior leads which attenuates with eye-opening. Hyperventilation is performed for 3 minutes with no lateralizing or epileptiform changes. EKG is normal sinus rhythm throughout the recording and photic stimulation generates a normal symmetric driving response in the posterior leads. The patient experienced wakefulness and drowsiness during the recording without lateralizing or epileptiform changes. Impression: Normal awake and drowsy electroencephalogram.
== END ==
PROVIDERS: Family Provider Family Medicine; PCP Family Medicine; Referring Provider Psychiatry & Neurology Neurology; Visit Provider Psychiatry & Neurology Neurology
DX: R41.0 Disorientation, unspecified (principal)
CPT/HCPCS: 95819

== ENCOUNTER 2019-06-13 15:00 | Outpatient (RCR) | payer OTHER, SELFPAY ==
--- NOTE | 2019-01-10 13:05 | HP.OTEVAL ---
Patient's Visit Information COREY RAMOS is a 48 year old M, referred to Occupational Therapy by Marty Latif MD, with a diagnosis of L MCA, CVA, Aphasia. Date of Evaluation: 01/08/19 Occupational Therapist: Daria Cruz - Subjective Subjective: Arrived with , [place], and noted that CVA occurred about three weeks ago. He went in for non-emergency aneurysm coiling. 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 He does have global aphasia. - ADLs Dressing: Shoes Fasteners: Tie shoes, Buttons Eating: Use silverware, Cut food Comments: getting fork and spoon mixed up Bathing: Handle washcloth & soap Kitchen: Chop with knife, Peel fruits & vegetables, Open jars, Open bottle caps, Pour from pitcher, Lift saucepan, Take dish out of oven, Load/unload bingo caller, Place dish in microwave Yard: Mow lawn, [place], [place], Use shovel, Use pruners, Use trowel Miscellaneous: Start car, Handle money (change), Hold change, Take things out of wallet, Open envelope, Write, Use hand tools, Use power tools, Use computer keyboard, Drive, Function in drive through window Comments: [place]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 He normally feeds animals and is unable at this time. Additionally he mixes feed, drives tractors, and complete farm related chores. He would like to return to all tasks. - ROM Shoulder: WFL Elbow: WFL Forearm: WFL Wrist: WFL MP: WFL PIP: WFL DIP: WFL - Strength Shoulder: Flexion R 4/5, L 4+/5; abduction R 4/5, L 4+/5 Elbow: Flexion: 4/5, L 5/5; extension: R 4-/5, L 4+/5 Forearm: WFL Wrist: WFL Experimental Worker: R 78, L 110 Lateral Pinch: R 24, L 28 Tripod Pinch: R 21, L 34 Tip-to-Tip Pinch: R 24, L 22 Strength Comments: Internal Rotation: R 4/5, L 4+/5. External rotation: R 4/5, L 4+/5 - Sensation Kinesthesia: Normal - Right, Normal - Left Proprioception: Normal - Right, Normal - Left Sensation Comments: Denies numbness or tingling. - Movement Ataxia: none observed through finger to thumb and finger to nose test Muscle Tone: Normal - Visual/Perceptual Skills Visual Field Cut: No Left Neglect: Yes Copies Shapes Correctly: Yes MVPT Score: raw score: 59 Comments: Will be completing MVPT upon first appointment and results are as follows: MVPT. - raw score: 59. - standard score: 114. - confidence interval 90%: 105-123. - percentile rank: 83%. - Age equvilant. : >18. Scored high average on MVPT. Vision appears to be doing well. Tested in 8:00 am in morning on first treatment session. - Cognitive Skills Follows Directions: Yes Cognitive Comments: Oriented to person, place, and time. Completed drawing [place], square, and triangle as well as name. He janett clock but had 2x 10 and skipped 11. He otherwise janett clock correctly. Will continue to monitor and address cognitive related concerns as they arise through the course of treatment. Joshua will also be receiving speech therapy services. - Attention Attention: Normal - In-Hand Manipulation Finger to Palm Translation: Normal - Right, Normal - Left Palm to Finger Translation: Normal - Right, Normal - Left Shift: Normal - Right, Normal - Left Rotation: Normal - Right, Normal - Left - Stroke Specific Quality of Life Total SS-QOL Score: 102 - Quick DASH-Disab of Arm,Shoulder& Hand Quick DASH Score: 23.3325 - Goals Goal:: Joshua to increased R city bailiff strength by 30 lbs to promote increased city bailiff and ability to manipulate with R dominant hand to promote return to PLOF by d/c. Goal:: Joshua to increase R UE coordination and strength as exhibited through increased ability to write simple 2-3 sentence paragraph to promote increased VMI and copying skills to increased dexterity and coordiantion of R hand needed for IADLS by d/c. Goal:: Joshua to be aware of surroundings and decrease running into others when on community outtings with good body awareness and visual scanning to promote looking at who visual field and processing needed information to adjust apporpriately in various environments by d/c. Goal:: Joshua to be (I) to mod I to complete farm- related tasks and IADLS with good safety awanress and correct completion of sequence of tasks 4/ 5trials 80% of the time by d/c. Goal:: Joshua to be able to complete5-8 step cooking or otherwise related tasks to promote increased cogition and processing ability to complete cooking atsks and progress to higher level work- simulated tasks whe apporpriate by end of 6 weeks. Goal:: Joshua to be mod I to complete daily HEP to promote increased B UE strength, VMI, and general function and cognitive processing ability 4/5 trials 80% of the time by d/c. - Rehabilitation General Assessment: Arrived for OT evaluation on this date of 01/08/19. noted that he went in for coiling of aneurysm and after procedure endured CVA of the L MCA. Joshua does well following 2-3 step directions. notes global aphasia, but Joshua appears to have the most severe deficits with expressive tasks and is able to indicate and express through nonverbals correct answers. Further speech therapy evaluation to follow. Joshua is having some trouble remembering all steps to complete simple meals, increased safety concerns around home per ?s report, R sided weakness, and general decreased (I) with all ADL/IADLS. 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. This job requires increased mental capacity as he is in charge of operating and running heavy machinery as well as design research projects for students. His goal is to get back to work. Skilled OT services needed to promote increased strength, dexterity, safety awareness, completion of ADLS and IADLs at PLOF, and general quality of life to promote increased (I) and ability to complete tasks at PLOF. Rehabilitation Potential: Good - Anticipated Interventions Anticipated Interventions: A/AAROM/PROM, Strengthening, Edema Control, Scar Care, Massage, Modalities, Joint Protection/Energy Conservation, Fine Motor Coord/Adams, Neuro Reeducation, Visual/Perceptual Skills, Cognitive Skills, ADL Training, Caregiver Training, Home Program - Visit Plan Frequency: 2x /Week Duration: 6 Weeks General Plan: OT to complete working on strengthening progresm for R UE, handwriting remediation, FMC and dexterity, safety and sensory awareness, completion of simple meals and ADLS at PLOF, IADLS at PLOF, and progression of tasks to promote reaching goal of potentially returning to work if and when appropriate. TEXT: Thank you for the opportunity to evaluate your patient. For Medicare and Medicare HMO plans, please review the plan of care and approve it. It will need to be FAXED BACK to us at [phone] for Medicare purposes. Please let me know if there are questions or concerns regarding this plan of care. Physician Signature: Date:
--- NOTE | 2019-01-15 11:19 | HP.SP.AD ---
History - History Date of Eval: 01/14/19 Medical Diagnosis (from RX): CVA Date of Onset of Diagnosis: 12/18/18 Previous speech therapy: Yes Results: Inpatient rehab for two weeks. Other Relevant Medical History/Diagnoses/Surgery: Left MCA aneurysm s/p coiling 12/18/18. Left MCA stroke with left superior temporal occluasion in follow up catheter angiogram. [facility] rehab 12-23-18 to 01-04-19. 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 Linguistic skills were evaluated using patient/family interview, skilled observation and informal evaluation through tasks completed by the patient. - Orientation Orientation: Person, Birthdate, Medical Diagnosis - Answer Yes/No Questions Simple: WNL Complex: Mild - Follows Commands Complex: WFL - Automatic Sequences Automatic Sequences: WNL - Repetition Words: WNL - Naming Responsive naming: Moderate - Conversational Tasks Conversational Tasks: Moderate Comments: He ranged from being able to say two words to answer to being able to say a short sentence without errors. He demonstrated deficits on 95% of communciation attempts. - Reading Picture-Word Matching Picture-Word matching: Mild Comments: slow and needed maximal cues to process. He was able to self correct w/cues - Reading Comprehension Words: WNL Sentences: Moderate - Oral Reading Sentences: WNL Paragraphs: WNL Comments: He is able to read outloud fluently. - Writing Functional writing correctly: Name Words: Severe Comments: He was able to spell 1/4 words correctly. Cognitive Linguistic Comments - Comments safety concerns His stated that at home he continues to have safety concerns. ( example - putting out a fire with a paper towel). He needed extra processing time and also exhibited word finding deficits. Currently he is not allowed to stay at home along due to safety awareness concerns. Plan - Plan Plan: Patient presents with moderate to severe expressive aphasia and mild to moderate receptive aphasia. - Recommendations Treatment Warranted: Yes - Frequency Frequency: 2x /Week Duration: 10 Visits in this POC: 20 - Prognosis Prognosis: Good - Goals that are Established: Determination:: Goals will be added/modified as deemed necessary and appropriate. Therapy will be discontinued when results of re-evaluation indicate therapy is no longer needed or lack of progress has been documented. - Goal #1-5 Goal #1: Ismael will complete word finding tasks including but not limited to naming, listing items in categories and answering questions with single object answers with 80% accuracy with minimal cues to faciliate verbal expression. Goal #2: Ismael will answer questions with sentences of 3-5 words on 4/5 trials on 4 consective sessions. Goal #3: Ismael will complete questions via answer choices for information recall on 4/5 trials on 4 consecutive sessions. Goal #4: Ismael will demonstrate knowledge of safety awareness by pointing to or verbalizing answers to safety situations for home activities on 4/5 trials on 4 consecutive sessions. Education - Patient has Indicated that the Following Identified Educational Needs: None The Patient has indicated that they have no educational or learning abilities that may effect their care.: Yes - Patient Instruction Patient Education: Diagnosis, Treatment Plan, Goals Person Taught: Patient, Significant Other Teaching Method: Discussion Response to teaching: Verbalize understanding, Has Prior Knowledge
--- NOTE | 2019-02-14 11:06 | HP.OTREVAL ---
Marty Latif MD, It has been my pleasure to treat COREY RAMOS over the last 12 visits for L MCA, CVA, Aphasia. Please see the progress note below for an update on the occupational therapy plan of care! Subjective: Arrived post ST session. in OT waiting area. Completed today completed reassessment. Needed to leave early from session due to having Neurology appointmnt in [facility]. in [facility]. Objective/Function: Completed reassessment on this date of 02/14/19. Joshua complete MoCA cognitive screen for general cognitive testing but due to significant aphasia further cognitive testing to follow for more appropriate and accurate cognitive and ADL related tasks. He scored a 21/30 on the MoCA which indicates mild- moderate cognitive impairment. He was able to repeat words after OT directly said prompt but was unable to complete memory recall after 5 minutes. He is able to draw a clock but janett at 10:10 rather than 11:10 but is starting to catch mistakes made without need for direct feedback. For example, he was able to correct himself with drawing two 6's and two 10's in a row to 6 then 7 and 10 then 11 without cueing. Joshua is working on completing sequencing and problem-solving 4-5 step self-care tasks including simple meal prep. He has completed making brownies and protein balls while in clinic for session both of which needed additional cueing to complete but he is able to start to read through directions and process to complete steps. He exhibits increased difficulty with higher level executive functioning tasks such as divided attention. If OT talks during tasks he often has two multitasking and completing answering questions and completing tasks at hand. Further training needed for progression of increased sequencing tasks. Safety remains a concern. OT is able to follow cues in sessions but at home he continues to attempt to complete grill with lid on when lighting and exhibits increased safety concerns when around family. Further training needed for safety awareness and increased complexity with sequencing 6-8 step tasks. Joshua has been working on both intrinsic and extrinsic techniques to promote verbal to written language for ADL/IADLs tasks. He is completing writing down recipe instructions with and without visual prompts. He often prefers visual prompts to decrease the difficulty of tasks but is able to complete, with errors and cues as needed, writing recipes from verbal communication. OT has started working on simple math related tasks of addition and subtraction for grocery related tasks as part of simple meal prep cooking activities completed in clinic to work on el comparisons but continue to need min A to complete tasks. Generally, Joshua continues to exhibit R sided weakness and strength measurements are as follows: -Network Solutions Architect R 73, L 93 lbs. -Lateral pinch: R 24, L 28 lbs. -Three jaw R 19, L 36 lbs. -Tip Pinch R 16, L 18 lbs. Joshua has progressed since start OT. 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 Further executive function-based ADL assessment to occur with upcoming sessions in OT. Plan Frequency: 2x /Week Duration: 8 Visits in this POC: 28 Plan: continue POC for 2x8 weeks for 60 min appointments. Will complete more comprehensive cognitive testing with upcoming appointments. Will start to address sequencing 6-8 step ADL/IADL tasks as well as continued safety awareness training. Right sided strengthening program to continue to be progressed as needed to promote increased strengthening of R UE. Goals - Goals Goal:: Joshua to increased R butt sawyer strength by 30 lbs to promote increased butt sawyer and ability to manipulate with R dominant hand to promote return to PLOF by d/c. Goal:: Joshua to increase R UE coordination and strength as exhibited through increased ability to write simple 4-5 sentence paragraph to promote increased VMI, written language, and copying skills to increased dexterity and coordiantion of R hand needed for IADLS by d/c. Goal:: Joshua to be aware of surroundings and decrease running into others when on community outtings with good body awareness and visual scanning to promote looking at who visual field and processing needed information to adjust apporpriately in various environments by d/c. Goal:: Joshua to be (I) to mod I to complete farm- related tasks and IADLS with good safety awanress and correct completion of sequence of tasks 4/ 5trials 80% of the time by d/c. Goal:: Joshua to be able to complete 6-8 step cooking or otherwise related tasks to promote increased cogition and processing ability to complete cooking atsks and progress to higher level work- simulated tasks whe apporpriate by end of 8 weeks. Goal:: Joshua to be mod I to complete daily HEP to promote increased B UE strength, VMI, and general function and cognitive processing ability 4/5 trials 80% of the time by d/c. Anticipated Interventions Anticipated Interventions: A/AAROM/PROM, Strengthening, Edema Control, Scar Care, Massage, Modalities, Joint Protection/Energy Conservation, Fine Motor Coord/Adams, Neuro Reeducation, Visual/Perceptual Skills, Cognitive Skills, ADL Training, Caregiver Training, Home Program Please do not hesitate to contact me at [phone] by phone or if you have questions or concerns regarding this new plan of care! Sincerely, Daria Cruz
--- NOTE | 2019-02-28 14:41 | HP.OTCOM ---
OT Communication Note 02/28/[address] Marty Latif MD Further cognitive testing completed with use of Hari Cognitive Level Scales (ACLS) to promote more accurate depiction of cognitive abilities for activities of daily living (ADL) as well as compensations that can be made for Joshua when at home or in the community. This assessment is typically used with individuals with cognitive impairment including but not limited to dementia, CVA, TBI, mental illness, and general cognitive decline. The Hari Cognitive Level assessment was used to promote determining problem solving skills, attention, sequencing, and general ability to complete new or unfamiliar tasks. Joshua completed the ACLS and scored at 5.2 level as able to complete third task after two demonstrations of task. He is able to follow 3- step tasks and maintains concentration on task without issue. Joshua attempts to problem- solve but needed 1-2x cues prior to receiving demonstration. He recognized that task was incorrect without promoting but was unable to distinguish what was incorrect about task. He followed cues and was able to complete corrected output from verbal directions. He is emerging towards 5.4 score and is suspected to continue to progress as he is still within first 6 months of CVA. In general, memory does not appear to be the main issue as indicated in re-assessment when completing MoCA. Problem- solving, sequencing of 5+ step tasks, and recognition of errors are what are the biggest deficits. He continues to make progress daily but remains significantly limited based on PLOF and previous work-related tasks. Safety continues to remain major concern but also continues to be improving and he is becoming more aware. Sincerely, Daria Cruz, OTR/L Contact Information
--- NOTE | 2019-02-28 14:46 | HP.OTCOM_ITS ---
OT Communication Note 02/28/[address] Marty Latif MD Further cognitive testing completed with use of Hari Cognitive Level Scales (ACLS) to promote more accurate depiction of cognitive abilities for activities of daily living (ADL) as well as compensations that can be made for Joshua when at home or in the community. This assessment is typically used with individuals with cognitive impairment including but not limited to dementia, CVA, TBI, mental illness, and general cognitive decline. The Hari Cognitive Level assessment was used to promote determining problem solving skills, attention, sequencing, and general ability to complete new or unfamiliar tasks. Joshua completed the ACLS and scored at 5.2 level as able to complete third task after two demonstrations of task. He is able to follow 3- step tasks and maintains concentration on task without issue. Joshua attempts to problem- solve but needed 1-2x cues prior to receiving demonstration. He recognized that task was incorrect without promoting but was unable to distinguish what was incorrect about task. He followed cues and was able to complete corrected output from verbal directions. He is emerging towards 5.4 score and is suspected to continue to progress as he is still within first 6 months of CVA. In general, memory does not appear to be the main issue as indicated in re- assessment when completing MoCA. Problem- solving, sequencing of 5+ step tasks, and recognition of errors are what are the biggest deficits. He continues to make progress daily but remains significantly limited based on PLOF and previous work-related tasks. Safety continues to remain major concern but also continues to be improving and he is becoming more aware. Sincerely, Daria Cruz, OTR/L Contact Information
--- NOTE | 2019-03-12 15:03 | HP.OTCOM ---
OT Communication Note 03/12/[address] ELIEZER LOGAN Joshua is s/p aneurysm coiling that resulted in CVA post procedure. S/p CVA he was referred to outpatient therapy after spending time on the rehabilitation unit at [facility]. Joshua has been completing two-time weekly occupational therapy (OT) appointments for the last two months that has focused on increasing independence and safety with ADL/IADLS. In OT, Joshua has been working on increasing safety awareness, executive functioning, sequencing, divided attention, and problem solving for everyday ADL/IADLs tasks. OT has focused on getting Joshua processing, planning, and sequencing ADL/IADLS while addressing safety awareness. OT has been using cognitive strategies of chunking techniques, forward and backward chaining, intrinsic and extrinsic cuing, as well as safety awareness training to promote Joshua regaining independence. Joshua has progressed and has meant goal of sequencing 4-5 step ADL tasks and is now progressing to 8-10 step IADLs tasks. These tasks include starting to work on beginning grocery shopping skills for simple meal preparation like looking through weekly advertisements to see what ingredients cost. After finding costs when working simple money management of calculating the total of groceries based on list formed. OT has been working on written language of writing out sequencing of tasks and then typing to help promote carryover of language techniques he is working on in speech therapy. He requires steps of cues as needed to rpomote correct completion of tasks. Further cognitive testing completed on 02/28/19 with use of Hari Cognitive Level Scales (ACLS) to promote more accurate depiction of cognitive abilities for activities of daily living (ADL) as well as compensations that can be made for Joshua when at home or in the community. This assessment is typically used with individuals with cognitive impairment including but not limited to dementia, CVA, TBI, mental illness, and general cognitive decline. The Hari Cognitive Level assessment was used to promote determining problem solving skills, attention, sequencing, and general ability to complete new or unfamiliar tasks as MoCA was not sufficient in determining his abilities. Joshua completed the ACLS and scored at 5.2 level as able to complete third task after two demonstrations of task. He is able to follow 3- step tasks and maintains concentration on task without issue. Joshua attempts to problem- solve but needed 1-2x cues prior to receiving demonstration. He recognized that task was incorrect without promoting but was unable to distinguish what was incorrect about task. He followed cues and was able to complete corrected output from verbal directions. He is emerging towards 5.4 score and is suspected to continue to progress as he is still within first 6 months of CVA. In general, memory does not appear to be the main issue as indicated in re-assessment when completing MoCA. Joshua's main deficits include problem- solving, sequencing of 5+ step tasks, safety awareness, fluidity of processing to promote compeltion of tasks, and recognition of errors. He continues to make progress daily but remains significantly limited based on PLOF and previous work-related tasks. Safety continues to remain major concern but also continues to be improving and he is becoming more receptive but continues to put himself in dangerous situation and is noncompliant with family ( and kids). He has recently tried driving with father on [address]. He was advised against this but completed. This is og great concern to OT as he does not demonstrate the needed safety awareness, fluidity, divided attention, and problem- solving skills needed to completed that task safely. He has been advised by OT that completing supervised driving in empty driving lots is reasonable now but should continue to be limited. 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 Joshua has significantly improved from initial evaluation. He is anticipated to continue to progress with continued therapy. 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. 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 He is currently unable to complete work-related these tasks at this time due to global aphasia and cognitive deficits. His safety awareness has increased but further therapy is needed to continue to increase his ability to complete higher ADLS, IADLs including farm chores, as well as starting to complete some work -related tasks needed to return to [employer]. Please feel hannah to contact OT at [phone] with any further questions. He is currently on visit 20 of the 45 OT/PT combined visits he is able to receive per year. He currently does not exhibit need for PT services and OT to likely use all of 45 with need for further request of visits to promote Joshua's continued progression. Additionally, it has been recommended to the family and Joshua to continue monthly stroke support group at [facility] to promote emotional support needed to aid in progression. Sincerely, Daria Cruz, OTR/L Contact Information
--- NOTE | 2019-03-14 12:00 | RE_ITS ---
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 The Patient has participated in intervention sessions consisting of training and implementation of circumlocution / semantic feature analysis approach and strategy, in addition to training and implementation of the Verb Network Strengthening Treatment (VNeST) protocol, with improving mean length of utterance, reduced significance (albeit remaining) of anomia, and improving communication effectiveness both through spoken language and through written message. While his improvements have been steady and quite impressive when compared to his functionality during his acute rehabilitation admission, his current level of functioning is quite debilitating, as he is clearly unable to perform is prior vocational duties. Additionally, his communication deficits and mild disruptions in cognitive functioning has negatively impacted both his marital relationship, and has begun to impact his parental relationship as well, as both the Patient and Patients report he has become quicker to frustration and has become somewhat more impulsive and defiant due to his perceived deficits. Despite this, he remains motivated to improve, and completes carryover activities at a higher rate. 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 FUNCTIONAL / EMOTIONAL STATUS ASSESSMENT RESULTS: Patient Health Questionnaire (PHQ-9): 13 (moderate risk of depression) Generalized Anxiety Disorder 7-item (NICOLE-7) scale: 11 (moderate risk of anxiety) Aphasia Depression Rating Scale (ADRS): 14/32 Insomnia Middle: 1 (restless and disturbed during night / observed sleep disturbance) Anxiety Psychic: 3 (apprehensive attitude apparent in face or speech) Anxiety Somatic: 3 (severe) Somatic symptoms ? Gastrointestinal: 0 (none) Hypochondriasis: 2 (preoccupation with health) Loss of weight: 0 (<0.5 kg weight loss/week) Apparent sadness: 3 (looks dispirited but brightens without difficulty) Mimic Slowness of Facial Mobility: 1 (may be some reduction of mobility) Fatigability: 1 (not indicated spontaneously; evidence emerges in the course of interview) Stroke Impact Scale - Version 3 (SIS v.3): Physical Problems: Memory / Thinkin/35 Psychosocial Functionin/45 Communication Abilities: Daily Activities: Mobility: Hemiparesis: Activity Participation: TOTAL SCORE: 212/295 RECOVERY SCALE: 30/100 (100 = full recovery; 0 = no recovery) COGNITIVE COMMUNICATION ASSESSMENT RESULTS (QUANTITATIVE): [place] Test: Correct: 34/35 Total Time: 2:27 Omissions (right): 0 (> 6 suggestive of right visual neglect / disturbance) Omissions (left): 1 (> 6 suggestive of left visual neglect / disturbance) Omissions (total): 1 (> 3 suggests an attentional deficit) Distractors: 0/264 Scanning Strategy: Left to right Attention Process Training (APT) Test: Sustained Attention: (residual score: 29/30, NORMAL) Complex Sustained Attention: (residual score: 2/30, SEVERE) Selective Attention: (residual score: 1/30, SEVERE) Divided Attention: (residual score: 6/30, SEVERE) Alternating Attention: (residual score: 0/30, SEVERE) Digit Memory Test (DMT): Forward Score: 9 Backwards Score: 4 Total: 13 Standard Score: 82 Percentile Equivalent: 12th [facility] Prospective Memory Test ([facility]-ProMem): Form #1 Part 1 (Short-term, Time-based): 3 (Correct response, < 2 minutes ahead) Part 2 (Short-term, Event-based): 3 (Correct response, < 2 minutes delay) Part 3 (Long-term, Event-based): 3 (< 2 hours of correct time; correct message) Part 4 (Long-term, Time-based): 3 (correct day, correct information) TOTAL SCORE: 1212 Sub-scores: Time-based tasks: 6/6 Short-term tasks: /6 Event-based tasks: 6 Long-term tasks: 03/21 Trial Making Test (TMT): Part A: 45.26 seconds (> 78 seconds abnormal) Part A Errors: 0 Part B: 134 seconds (> 273 seconds abnormal) Part B Errors: 1 Dannie Osterrieth Complex Figure: Copy Trial: (total score: 36; 100%ile; time: 3:17) Recall Trial (15 min): (total score: 25; 60%ile; time: 6:25) [place] Naming Test (BNT): Number of correct responses: 48 Correct following stimulus cues: 0 Phonological Paraphasias: 4 Verbal Paraphasias: 5 Neologistic Paraphasias: 1 Multi-word Paraphasias: 0 Perceptual Paraphasias: 0 TOTAL NUMBER CORRECT: 48 TOTAL SCORE: 48 (mean: 56.8, SD: 3.0) [place] Diagnostic Aphasia Examination ? Third Edition (BDAE-3): Severity Rating: (score: 2; percentile: 50th) Fluency: Phrase Length (rating scale): (score: 7; percentile: 100th) Melodic Line (rating scale): (score: 6; percentile: 60th) Grammatical Form (rating scale): (score: 6; percentile: 70th) Conversation / Expository Speech: Simple Social Responses: (score: 7; percentile: 100th) Complexity Index: (score: 0.84; percentile: 40th) Auditory Comprehension: Basic Word Discrimination: (score: 37; percentile: 100th) Commands: (score: 13; percentile: 50th) Complex Ideational Material: (score: 8; percentile: 50th) Articulation: Nonverbal Agility: (score: 12; percentile: 100th) Verbal Agility: (score: 14; percentile: 100th) Articulatory Agility (rating scale): (score: 7; percentile: 100th) Recitation: Automatized Sequence: (score: 8; percentile: 100th) Recitation: (score: 2; percentile: 100th) Connie: (score: 2; percentile: 100th) Rhythm: (score: 2; percentile: 100th) Repetition: Words: (score: 10; percentile:100th) Sentences: (score: 10; percentile:100th) Naming: Responsive Naming: (score: 15; percentile: 40th) [place] Naming Test: (score: 48; percentile: 70th) Special Categories: (score: 12; percentile: 100th) Paraphasia: Rating from Speech Profile: (raw score: 2; percentile: 20th) Phonemic: (score: 6; percentile: 30th) Verbal: (score: 6; percentile: 40th) Neologistic: (score: 1; percentile: 40th) Multi-word: (score: 0; percentile: 100th) Reading: Matching Cases & Scripts: (score: 8; percentile: 100th) Number Matching: (score: 12; percentile: 100th) Picture-Word Matching: (score: 7; percentile: 20th) Lexical Decision: (score: 5; percentile: 100th) Homophone Matching: (score: 4; percentile: 60th) Free Grammatical Morphemes: (score: 10; percentile: 100th) Oral Word Reading: (score: 30; percentile: 100th) Oral Sentence Reading: (score: 10; percentile: 100th) Oral Sentence Comprehension: (score: 5; percentile: 100th) Sentence / Paragraph Comprehension: (score: 9; percentile: 80th) Writing: Form: (score: 16; percentile: 40th) Letter Choice: (score: 25; percentile: 60th) Motor Facility: (score: 14; percentile: 30th) Primer Words: (score: 6; percentile: 100th) Regular Phonics: (score: 5; percentile: 100th) Common Irregular Words: (score: 5; percentile: 100th) Written Picture Naming: (score: 12; percentile: 100th) Narrative Writing: (score: 8; percentile: 70th) [place] Diagnostic Aphasia Examination ? Third Edition (BDAE-3): EXTENDED SUBTESTS Auditory Comprehension: Tools / Implements: (score: 10; percentile: 100th) Foods: (score: 10; percentile: 100th) Animals: (score: 10; percentile: 100th) Body Parts: (score: 20; percentile: 100th) Map Locations: (score: 15; percentile: 100th) Touch A with B: (score: 10; percentile: 70th) Reversible Possessives: (score: 10; percentile: 100th) Embedded Sentences: (score: 9; percentile: 70th) Repetition: Nonsense Words: (score: 5; percentile: 100th) Reading: Lexical Decision: (score: 5; percentile: 100th) Pseudohomophonemes: (score: 2; percentile: 20th) Bound Morphemes: (score: 7; percentile: 30th) Derivational Morphemes: (score: 9; percentile: 40th) Mixed Morphemes: (score: 12; percentile: 100th) Paralexia-Prone Words: (score: 12; percentile: 100th) Writing: Uncommon Irregular Words: (score: 2; percentile: 60th) Nonsense Words: (score: 6; percentile: 100th) Oral Spelling: (score: 4; percentile: 50th) Dictated Functions: (score: 6; percentile: 100th) Derivational Affixes: (score: 5; percentile: 60th) Verb Forms: (score: 6; percentile: 100th) Sentences: (score: 3; percentile: 40th) Praxis: Natural Gestures: (score: 11; percentile: 30th) Conversational Gestures: (score: 12; percentile: 100th) Pretended Objects: (score: 24; percentile: 100th) Bucco-Facial: (score: 12; percentile: 100th) Aphasia Severity Rating Scale (ASRS): 2 (Conversation about familiar subjects is possible with help from the listener. There are frequent failures to convey the idea, but the patient shares the burden of communication). Apraxia of Speech Rating Scale (ASRS-v1): (not present) COGNITIVE COMMUNICATION ASSESSMENT RESULTS (QUALITATIVE): LANGUAGE FUNCTIONING: language profile marked by fluctuating fluent albeit slightly telegraphed speech that often devolves in regards to intelligibility due to frequent naming errors (anomia / dysnomia) combined with frequent paraphasias (principally phonemic in nature) and associated message breaks and revisions, with attempted circumlocution (evolving effectiveness); expression often lacks sufficient content to facilitate listener comprehension, with critical nouns and verbs often missing or lacking specificity; occasional perseverations which tend to ?snowball? in regards to frequency when encountered; repetition is intact; comprehension is intact at the conversational level, though does devolve with complexity; deficit awareness is maintained; reading comprehension is intact without signs of alexia; prosodic cues appear intact; orthographic / typed communication is additionally complicated by phonemic like paraphasias / spelling errors with often disjointed content lacking specificity; no dyscalculia; no apraxia; no dysarthria. Symptomology appears to be somewhat similar in nature to transcortical sensory aphasia vs. conduction aphasia. EXECUTIVE FUNCTIONING: occasional impulsivity (reported at home) and forward thinking that may be somewhat attributed to a combination of his language deficits and concomitant emotional effects, with questionable problem solving and safety awareness; difficulties with information organization / sequencing; occasional difficulties with inertia, particularly when encountered with an error process; reported difficulties with emotional regulation reported by the Patient and the Patients family. MEMORY: working memory appears to be complicated by the Patients disrupted attention (rather similar functionality); overall preserved prospective memory (though this can additionally be complicated by his attention / executive functioning disruptions); preserved explicit and implicit memory. ATTENTION: preserved sustained attention; rather impaired attention as the complexity of demands increase (divided, selective, and alternating attention). VISUOSPATIAL ABILITIES: no signs of disrupted visuospatial functioning appreciated. VOICE: no vocal abnormalities appreciated. COMPLICATING FACTORS: complicating factors would include possible depression / anxiety associated with the extent of communication impairment and concomitant disruption in his personal relationships and vocational abilities. 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 RECOMMENDATIONS: Given the extent of impairment and the extensive communication demands that will be required to return to the vocational setting, and maintain his interpersonal relationships (marital and parental), this Patient requires CONTINUOUS AND EXTENSIVE skilled speech-language intervention targeting both communication and cognitive based deficits, with considerations for continued training and implementation of circumlocution / semantic feature analysis approach and strategy, in addition to training and implementation of the Verb Network Strengthening Treatment (VNeST) protocol, context based management, paraphrasing / rephrasing (without stopping communication), continued training and implementation of self-monitoring / awareness strategies to allow the Patient to regain responsibility for comprehension and correction, with preference for an errorless learning approach to reduce frustration. Prognosis for recovery is excellent if provided with sufficient intervention given the Patients relatively young age, singular area of infarction, high education level and previous vocational demands, preserved mobility, high level of motivation to improve, and excellent family support. FUNCTIONAL OUTCOMES: OUTCOME 1: the Patient will independently utilize internal word finding strategies (circumlocution) to reduce the presence of anomia and facilitate listener comprehension during both structured therapeutic tasks and unstructured / conversational speech, in 3 consecutive sessions. OUTCOME 2: the Patient will demonstrate improved receptive / expressive communication functioning through a variety of intervention approaches (considerations for paraphrasing and re-phrasing, errorless learning, and self-monitoring / awareness strategies when appropriate) during both structured and unstructured therapeutic tasks. OUTCOME 3: The Patient will implement Verb Network Strengthening Treatment (VNeST) principles to improve message clarity during both structured and unstructured therapeutic activities in 90% of opportunities in 3 consecutive sessions. OUTCOME 4: the Patient will utilize compensatory executive functioning / processing strategies identified and implemented during structured therapeutic to facilitate improved cognitive processing, attention functionality, and achievement of the highest level of safe, independent functioning with 100% accuracy over 2 consecutive sessions. Ja Harvey M.A., CCC-SCHOOL BUSINESS MANAGER MBSImP Certified, LSVT Certified [facility] Speech-Language Pathology Department [email or web address]
--- NOTE | 2019-04-25 09:12 | HP.OTCOM ---
OT Communication Note 04/25/[address] 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 Status post CVA he was referred to outpatient therapy after spending time on the rehabilitation unit at [facility]. Joshua has been completing one- two time weekly occupational therapy (OT) appointments for the last three months that has focused on increasing independence and safety with ADL/IADLS. In OT, Joshua has been working on increasing safety awareness, executive functioning, sequencing, divided attention, and problem solving for everyday ADL/IADLs tasks. On the [place] Index of Activities of Daily Living Scales Joshua scored 6/6 indicating high independence for self-care. However, on the [place] Instrumental Activities of Daily Living Scale he scored 3/5 indicating moderate- severe impairment. Although, for basic self-care tasks he is largely independently deficits remains for higher self-care tasks like transportation, ability to handle finances, use of telephone, shopping, and basic work-related tasks. 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 This is great safety concern based on executive functioning deficits at this time. OT has focused on getting Joshua processing, planning, and sequencing ADL/IADLS while addressing safety awareness. OT has been using cognitive strategies of chunking techniques, forward and backward chaining, intrinsic and extrinsic cuing, as well as safety awareness training to promote Joshua regaining independence. Joshua has progressed and has meant goal of sequencing 4-5 step ADL tasks and is now progressing to 10-20 step IADLs tasks. These tasks include starting to work on beginning grocery shopping skills for simple meal preparation like looking through weekly advertisements to see what ingredients cost. After finding costs then working simple money management of calculating the total of groceries based on list formed. OT has been working on written language of writing out sequencing of tasks and then typing to help promote carryover of language techniques he is working on in speech therapy. He requires cues as needed to promote correct completion of tasks. He often is unable to completed tasks that require divided attention. During these such tasks he is observed to completely need to stop task to address divided attention prompt, return to initial task, and often requires some additional time to figure out where he left off. He is currently not driving due to processing, safety awareness, and attention concerns. 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 Due to these deficits he is not yet ready to return to work as he would be required to operated heavy machinery. Further cognitive testing completed on 02/28/19 with use of Hari Cognitive Level Scales (ACLS) to promote more accurate depiction of cognitive abilities for activities of daily living (ADL) as well as compensations that can be made for Joshua when at home or in the community. This assessment is typically used with individuals with cognitive impairment including but not limited to dementia, CVA, TBI, mental illness, and general cognitive decline. The Hair Cognitive Level assessment was used to promote determining problem solving skills, attention, sequencing, and general ability to complete new or unfamiliar tasks as MoCA was not enough in determining his abilities. Joshua completed the ACLS and scored at 5.2 level out of 6.0 score as able to complete third task after two demonstrations of task. This score indicates impairment in problems- solving and sequencing of tasks. He is able to follow 3- step tasks and maintains sustained attention on task without issue but is unable to completed divided attention. Joshua attempts to problem- solve but requires 1-2x cues prior to receiving demonstration. He recognized that task was incorrect without promoting but was unable to problem-solve through task on what was incorrect about task. He followed cues and was able to complete corrected output from verbal directions. He is emerging towards 5.4 score and is suspected to continue to progress as he is still within first 6 months of CVA. Joshua's main deficits include problem- solving, sequencing of 10+ step tasks, safety awareness, fluidity of processing to promote completion of tasks, and recognition of errors. He continues to make progress daily but remains significantly limited based on prior level of functioning and previous work-related tasks. Safety continues to remain major concern but also continues to be improving and he is becoming more receptive but continues to put himself in dangerous situation and is noncompliant with family ( and kids). This is of great concern to OT as he does not demonstrate the needed safety awareness, cognitive fluidity, divided attention, and problem- solving skills needed to complete tasks safely. Joshua has significantly improved from initial evaluation but does not demonstrated the needed skills to return to work at this time. He is anticipated to continue to progress with continued therapy. Please feel free to contact OT at [phone] with any further questions. Sincerely, Daria Cruz, OTR/L Contact Information
--- NOTE | 2019-04-25 09:58 | HP.OTCOM_ITS ---
OT Communication Note 04/25/[address] 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 Status post CVA he was referred to outpatient therapy after spending time on the rehabilitation unit at [facility]. Joshua has been completing one- two time weekly occupational therapy (OT) appointments for the last three months that has focused on increasing independence and safety with ADL/IADLS. In OT, Joshua has been working on increasing safety awareness, executive functioning, sequencing, divided attention, and problem solving for everyday ADL/IADLs tasks. On the [place] Index of Activities of Daily Living Scales Joshua scored 6/6 indicating high independence for self-care. However, on the [place] Instrumental Activities of Daily Living Scale he scored 3/5 indicating moderate- severe impairment. Although, for basic self-care tasks he is largely independently deficits remains for higher self-care tasks like transportation, ability to handle finances, use of telephone, shopping, and basic work-related tasks. 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 This is great safety concern based on executive functioning deficits at this time. OT has focused on getting Joshua processing, planning, and sequencing ADL/IADLS while addressing safety awareness. OT has been using cognitive strategies of chunking techniques, forward and backward chaining, intrinsic and extrinsic cuing, as well as safety awareness training to promote Joshua regaining independence. Joshua has progressed and has meant goal of sequencing 4-5 step ADL tasks and is now progressing to 10-20 step IADLs tasks. These tasks include starting to work on beginning grocery shopping skills for simple meal preparation like looking through weekly advertisements to see what ingredients cost. After finding costs then working simple money management of calculating the total of groceries based on list formed. OT has been working on written language of writing out sequencing of tasks and then typing to help promote carryover of language techniques he is working on in speech therapy. He requires cues as needed to promote correct completion of tasks. He often is unable to completed tasks that require divided attention. During these such tasks he is observed to completely need to stop task to address divided attention prompt, return to initial task, and often requires some additional time to figure out where he left off. He is currently not driving due to processing, safety awareness, and attention concerns. 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. Due to these deficits he is not yet ready to return to work. Further cognitive testing completed on 02/28/19 with use of Hari Cognitive Level Scales (ACLS) to promote more accurate depiction of cognitive abilities for activities of daily living (ADL) as well as compensations that can be made for Joshua when at home or in the community. This assessment is typically used with individuals with cognitive impairment including but not limited to dementia, CVA, TBI, mental illness, and general cognitive decline. The Hari Cognitive Level assessment was used to promote determining problem solving skills, attention, sequencing, and general ability to complete new or unfamiliar tasks as MoCA was not enough in determining his abilities. Joshua completed the ACLS and scored at 5.2 level as able to complete third task after two demonstrations of task. He is able to follow 3- step tasks and maintains sustained attention on task without issue but is unable to completed divided attention. Joshua attempts to problem- solve but requires 1-2x cues prior to receiving demonstration. He recognized that task was incorrect without promoting but was unable to problem-solve through task on what was incorrect about task. He followed cues and was able to complete corrected output from verbal directions. He is emerging towards 5.4 score and is suspected to continue to progress as he is still within first 6 months of CVA. Joshua's main deficits include problem- solving, sequencing of 10+ step tasks, safety awareness, fluidity of processing to promote completion of tasks, and recognition of errors. He continues to make progress daily but remains significantly limited based on prior level of functioning and previous work- related tasks. Safety continues to remain major concern but also continues to be improving and he is becoming more receptive but continues to put himself in dangerous situation and is noncompliant with family ( and kids). This is of great concern to OT as he does not demonstrate the needed safety awareness, cognitive fluidity, divided attention, and problem- solving skills needed to complete tasks safely. Joshua has significantly improved from initial evaluation but does not demonstrate the needed skills to return to work at this time. He is anticipated to continue to progress with continued therapy. Please feel free to contact OT at [phone] with any further questions. Sincerely, Daria Cruz, OTR/L Contact Information
--- NOTE | 2019-10-03 15:44 | HP.OT.NRP ---
HP - Discharge Summary - Patient Information COREY RAMOS was seen in my office for initial evaluation on 01/08/19. The following Plan of Care was established for this patient: Initial Frequency: 2x /Week Initial Duration: 8 Plan: continue POC. Continue reserach articles and working written language. - Anticipated Interventions Anticipated Interventions: A/AAROM/PROM, Strengthening, Edema Control, Scar Care, Massage, Modalities, Joint Protection/Energy Conservation, Fine Motor Coord/Adams, Neuro Reeducation, Visual/Perceptual Skills, Cognitive Skills, ADL Training, Caregiver Training, Home Program This patient was last seen in our office 06/13/19. Pertinent comments regarding their Occupational therapy will appear below: Called and left message. He was last seen in clinic on 06/13/19. He was placed on medical hold as had slowly start to reintegrate to work and was getting ready for further testing with neuropsychologist. HE has not returned and will a new order if further treatment is needed. At this point I will be discontinuing this patient from occupational therapy. I would be happy to see this patient again in the future if found appropriate by the physician. Thank you! Daria Cruz, OTR/L
== END 2019-06-13 19:00 | disposition home or self-care (01) ==
LOC: OT 15:00
PROVIDERS: Family Provider Family Medicine; PCP Family Medicine
DX: R47.01 Aphasia (principal); Z86.73 Personal history of transient ischemic attack (TIA), and cerebral infarction without residual deficits
CPT/HCPCS: 92507; 92523; 97110; 97112; 97166; 97168; 97530

== ENCOUNTER 2020-01-16 09:00 | Outpatient (RCR) | payer OTHER, SELFPAY | END 2020-01-16 19:00 | disposition home or self-care (01) | LOC: SP 09:00 | PROVIDERS: PCP Family Medicine; Referring Provider Family Medicine; Visit Provider Family Medicine | DX: R47.01 Aphasia (principal) | CPT/HCPCS: 92507; 92523 ==

== ENCOUNTER → 2021-09-02 11:09 | Outpatient (CLI) | payer OTHER, SELFPAY ==
[2021-09-02 12:56] LABS: Anion Gap 6 (5-15); BUN 22 mg/dL (7-18); BUN/Creat Ratio 22.3 RATIO (10-20); Calcium,Total 9.1 mg/dL (8.5-10.1); Chloride 106 mmol/L (98-107); Cholesterol 216 mg/dL (200); Creatinine, Serum 0.99 mg/dL (0.70-1.30); EST Glomerular Filtration Rate 85 mL/min (>60); Est Glom Filt Rate - Afr Amer 102 mL/min (>60); Glucose 87 mg/dL (74-106); High Density Lipoprotein 44 mg/dL; PSA,Total - Annual Screen 1.74 ng/mL (0.00-4.00); Potassium 4.2 mmol/L (3.5-5.1); Sodium Level 138 mmol/L (136-145); Triglycerides 187 mg/dL; Very Low Density Lipoprotein 37 mg/dL (5-40)
== END ==
PROVIDERS: PCP Family Medicine; Referring Provider Family Medicine; Visit Provider Nurse Practitioner Family
DX: Z13.1 Encounter for screening for diabetes mellitus (principal); Z13.220 Encounter for screening for lipoid disorders; Z12.5 Encounter for screening for malignant neoplasm of prostate
CPT/HCPCS: 80048; 80061; 84153; G0103

== ENCOUNTER → 2023-09-14 | Outpatient (CLI) | payer OTHER, SELFPAY ==
[2023-09-14 12:29] LABS: PSA,Total - Annual Screen 2.25 ng/mL (0.00-4.00)
== END | disposition home or self-care (01) ==
LOC: MFPLAB 09:45
PROVIDERS: PCP Family Medicine; Visit Provider Family Medicine
DX: Z12.5 Encounter for screening for malignant neoplasm of prostate (principal)
CPT/HCPCS: 36415; 84153; G0103

== ENCOUNTER → 2024-03-21 | Outpatient (CLI) | payer OTHER, SELFPAY ==
[2024-03-21 15:34] LABS: Absolute Lymphocyte Count 2.67 X10^3/uL (0.83-4.51); Absolute Neutrophil Count 2.8 X10^3/uL (2.0-7.7); Basophil# 0.05 X10^3/uL; Basophil% 0.8 % (0-1); Eosinophil# 0.15 X10^3/uL; Eosinophils% 2.4 % (0-5); Hematocrit 46.4 % (40-54); Hemoglobin 15.5 g/dL (13.0-16.5); Lymphocyte # 2.67 X10^3/ul (0.83-4.51); Lymphocyte % 42.8 % (19-41); Mean Corp Hgb Conc 33.4 g/dL (32-36); Mean Corpuscular Hgb 29.1 pg (27.0-32.0); Mean Corpuscular Volume 87.2 fL (80-94); Mean Platelet Vol. 10.7 fl (6.2-12.0); Monocyte# 0.57 X10^3/uL; Monocyte% 9.1 % (0-10); NRBC Flagged by Analyzer 0 % (0-5); Neutrophil # 2.79 X10^3/uL (2.7-7.7); Neutrophil % 44.7 % (47-70); Platelet Count 284 K/mm3 (150-450); RBC Distribution Width CV 12.4 % (11.6-14.6); RBC Distribution Width SD 39.6 fl (35.1-43.9); Red Blood Count 5.32 M/mm3 (4.6-6.2); White Blood Count 6.2 K/mm3 (4.4-11.0)
[2024-03-21 15:55] LABS: Hepatitis B Surface Antibody Non-Reactive
[2024-03-21 16:24] LABS: ALB/GLOB Ratio 1.1 RATIO (0.9-2.4); AST(SGOT) 19 U/L (15-37); Alanine Aminotransfer ALT/SGPT 31 U/L (16-61); Alkaline Phosphatase 84 U/L (45-117); Anion Gap 7 (5-15); BUN 23 mg/dL (7-18); BUN/Creat Ratio 26.9 RATIO (10-20); Calcium,Total 9.4 mg/dL (8.5-10.1); Chloride 106 mmol/L (98-107); Cholesterol 197 mg/dL (200); Creatinine, Serum 0.86 mg/dL (0.70-1.30); EST Glomerular Filtration Rate 99 mL/min (>60); Est Glom Filt Rate - Afr Amer 120 mL/min (>60); Globulin 3.5 g/dL (2.2-4.2); Glucose 81 mg/dL (74-106); High Density Lipoprotein 43 mg/dL; Protein, Total 7.5 g/dL (6.4-8.2); Sodium Level 137 mmol/L (136-145)
[2024-03-23 08:13] LABS: LDL, Direct 120295 131 mg/dL (0-99)
== END | disposition home or self-care (01) ==
LOC: MFPLAB 11:39
PROVIDERS: PCP Family Medicine; Visit Provider Family Medicine
DX: Z01.84 Encounter for antibody response examination (principal); F32.0 Major depressive disorder, single episode, mild; Z79.02 Long term (current) use of antithrombotics/antiplatelets
CPT/HCPCS: 36415; 80053; 82465; 83718; 83721; 84443; 85025; 86706

== ENCOUNTER → 2025-08-22 | Outpatient (CLI) | payer OTHER, SELFPAY ==
[2025-08-22 15:00] LABS: Hematocrit 47.2 % (40-54); Hemoglobin 16.1 g/dL (13.0-16.5); Immature Granulocytes Count 0.020 X10^3/uL (0.0-0.0); Mean Corp Hgb Conc 34.1 g/dL (32-36); Mean Corpuscular Volume 85.2 fL (80-94); Mean Platelet Vol. 10.3 fl (6.2-12.0); NRBC Flagged by Analyzer 0 % (0-5); Platelet Count 267 K/mm3 (150-450); RBC Distribution Width CV 12.4 % (11.6-14.6); RBC Distribution Width SD 38.5 fl (35.1-43.9); Red Blood Count 5.54 M/mm3 (4.6-6.2); White Blood Count 6.1 K/mm3 (4.4-11.0)
[2025-08-22 15:47] LABS: AST(SGOT) 23 U/L (<=37); Alanine Aminotransfer ALT/SGPT 29 U/L (<=46); Albumin, Serum 4.4 g/dL (3.5-5.0); Alkaline Phosphatase 79 U/L (40-129); Anion Gap 10 (5-15); BUN 22 mg/dL (4-19); BUN/Creat Ratio 23.4 RATIO (10-20); Calcium,Total 9.5 mg/dL (7.6-11.0); Carbon Dioxide 26.8 mmol/L (21.0-32.0); Chloride 101 mmol/L (98-108); Globulin 3.0 g/dL (2.2-4.2); Glucose 83 mg/dL (70-99); PSA,Total - Annual Screen 2.59 ng/mL (0.02-4.00); Potassium 4.3 mmol/L (3.3-5.1)
[2025-08-24 10:08] LABS: V-Zoster IgG (Immunity) Reactive (Non Reactive)
== END | disposition home or self-care (01) ==
LOC: MFPLAB 12:19
PROVIDERS: PCP Family Medicine; Visit Provider Family Medicine
DX: G47.33 Obstructive sleep apnea (adult) (pediatric) (principal); Z12.5 Encounter for screening for malignant neoplasm of prostate
CPT/HCPCS: 36415; 80053; 84153; 85025; 86787; G0103

== ENCOUNTER → 2025-08-27 | Outpatient (CLI) | payer OTHER, SELFPAY ==
[2025-08-27 16:51] LABS: Cholesterol 215 mg/dL (<=200); Low Density Lipoprotein Calc. 147 mg/dL; Triglycerides 128 mg/dL; Very Low Density Lipoprotein 26 mg/dL (5-40); cholesterol:hdl ratio screen 4.81
== END | disposition home or self-care (01) ==
LOC: MFPLAB 12:17
PROVIDERS: PCP Family Medicine; Visit Provider Family Medicine
DX: Z79.02 Long term (current) use of antithrombotics/antiplatelets (principal)
CPT/HCPCS: 36415; 80061

== ENCOUNTER → 2025-10-06 | Outpatient (CLI) | payer OTHER, SELFPAY ==
--- NOTE | 2025-10-06 11:04 | MRI_ITS ---
PROCEDURE: MRA HEAD ONLY WITHOUT CONTRAST 10/06/2025 REASON FOR EXAM: HX COILING OF PRIOR ANEURYSM AT [facility], NEED SCREEING FOR COMPARISON: 12/14/2017. TECHNIQUE: Procedure Code: [id number] Modality: MR Procedure: MRA HEAD ONLY WITHOUT CONTRAST Multiplanar multisequential imaging was performed without IV contrast administration. FINDINGS: The intracranial segments of the bilateral ICAs appear unremarkable. The bilateral ACAs appear unremarkable. The anterior communicating artery is patent. A residual 2 mm nodular focus of increased signal is noted adjacent to the bifurcation of the left MCA (series 3, image 128), significantly smaller than on the previous study and likely representing a small residual aneurysm. The remainder of the left MCA appears otherwise unremarkable. The right MCA appears unremarkable. Incidentally noted is a focal area of encephalomalacia in the left frontal lobe, new since the previous study. The intracranial segments of the bilateral vertebral arteries (V4) appear unremarkable. The basilar artery is unremarkable. The bilateral regional liaison are unremarkable. 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 No hemodynamically significant stenosis or major vessel occlusion. Focal area of encephalomalacia in the left frontal lobe is new since the previo us study and likely the result of an old infarction. Reading Location: [id number]
== END | disposition home or self-care (01) ==
LOC: MRI 10:56
PROVIDERS: PCP Family Medicine; Referring Provider Family Medicine; Visit Provider Family Medicine
DX: I67.1 Cerebral aneurysm, nonruptured (principal)
CPT/HCPCS: 70544